=== PATIENT | female | born 1935 | race Caucasian/White ===

== ENCOUNTER 2019-03-06 20:28 | Inpatient (IN) | payer OTHER, MEDICAID ==
[~2019-03-06] VITALS: Ht 147.3 cm; Wt 59.4 kg
[2019-03-06 20:28] VITALS: BP_SYST 124
--- NOTE | 2019-03-06 20:29 | NUR ---
Placed in room 7 . Placed on hall monitor, blood pressure machine and pulse oximeter. To gown for exam. Side rails up.
--- NOTE | 2019-03-06 20:40 | NUR ---
Patient AOx4, brought to ER via ambulance BLS from [facility] for complaint of urinary frequency, needle-like pain with voiding since this AM. Patient states UTI's are a recurrent problem. Patient reports no fevers and no hematuria. Patient was last treated for a UTI 02/16/19. No other symptoms or complaints. Patient reports she recently voided and felt no symptoms.
--- NOTE | 2019-03-06 20:49 | NUR ---
ER Dr. Carbajal at bedside examining patient.
[2019-03-06] MEDS ORDERED: NACL 0.9% 1,000 ML IV ONE (20:55)
--- NOTE | 2019-03-06 21:10 | NUR ---
# 22 gauge angiocath placed to left hand. Use of asceptic technique. Opsite placed over site. Blood return noted. Blood for lab drawn from site. Flushed with 10 cc of normal saline. No evidence of infiltration noted. Patient tolerated well.
--- NOTE | 2019-03-06 21:42 | NUR ---
Urine specimen collected via straight cath. Patient tolerated well.
[2019-03-06 21:51] LABS: BILIRUBIN,URINE NEGATIVE (NEGATIVE); BLOOD, URINE 1+ (NEGATIVE); CLARITY/URINE CLEAR (CLEAR); COLOR,URINE YELLOW (YELLOW); GLUCOSE,URINE NEGATIVE (NEGATIVE); KETONES,URINE NEGATIVE (NEGATIVE); LEUKOCYTE ESTERASE ,URINE 1+ (NEGATIVE); NITRITE, URINE NEGATIVE (NEGATIVE); PH,URINE 6.5 (5.0-8.0); PROTEIN URINE NEGATIVE (NEGATIVE); UROBILINOGEN,URINE 0.2 (0.2-1.0)
[2019-03-06] MEDS ORDERED: ACET-2165 PO ×2 (21:55→21:56)
[2019-03-06] MEDS ORDERED: DEXT30DR6 EACH EYE (21:56)
[2019-03-06] MEDS ORDERED: LIP20 PO (21:57)
[2019-03-06] MEDS ORDERED: DIPH25CA83 PO (21:58)
[2019-03-06] MEDS ORDERED: CRAN450C PO (21:59)
[2019-03-06] MEDS ORDERED: DICL100G19 TP ×2 (22:01→22:31)
[2019-03-06 22:02] LABS: HEMOGLOBIN 13.2 g/dL (12.0-16.0); RED CELL DISTRIBUTION WIDTH 14.9 % (9.0-15.0); WHITE BLOOD COUNT (AUTO) 4.8 K/uL (4.8-10.8)
[2019-03-06] MEDS ORDERED: BISA10SU61 RC (22:02)
[2019-03-06] MEDS ORDERED: IPRA3AMP9 INH (22:04)
[2019-03-06] MEDS ORDERED: FLEETMO RC (22:04)
[2019-03-06 22:06] LABS: BASOPHILS % (AUTO) 0.8 % (0.0-2.0); EOSINOPHILS # (AUTO) 0.2 K/uL (0.0-0.4); EOSINOPHILS % (AUTO) 4.6 % (0.0-4.0); HEMATOCRIT 38.9 % (36-48); LYMPHOCYTES # (AUTO) 1.1 K/uL (1.0-5.5); LYMPHOCYTES % (AUTO) 21.9 % (20.5-51.5); MEAN CORPUSCULAR HEMOGLOBIN 33 pg (27-31); MEAN CORPUSCULAR HGB CONC 34 % (32-36); MEAN CORPUSCULAR VOLUME 99 fL (79.0-98.0); MONOCYTES # (AUTO) 0.4 K/uL (0.0-1.0); MONOCYTES % (AUTO) 9.2 % (1.7-9.3); NEUTROPHILS # (AUTO) 3.1 K/uL (1.8-7.7); NEUTROPHILS % (AUTO) 63.5 % (40.0-70.0); PLATELET COUNT (AUTO) 173 K/uL (130-430); RED BLOOD CELL COUNT(AUTO) 3.95 MIL/uL (4.2-6.2)
[2019-03-06] MEDS ORDERED: GLUC1VIA4 IM (22:07)
[2019-03-06] MEDS ORDERED: GLUCOSE PO (22:10)
[2019-03-06] MEDS ORDERED: MECL-110 PO (22:11)
[2019-03-06] MEDS ORDERED: MOM PO (22:12)
[2019-03-06 22:14] LABS: BACTERIA,URINE MODERATE /HPF (None Seen); WBC,URINE 20-50 /HPF (0-3)
[2019-03-06] MEDS ORDERED: HYDR-4272 PO (22:15)
[2019-03-06] MEDS ORDERED: OXCA300T38 PO (22:16)
[2019-03-06 22:18] LABS: ALANINE AMINOTRANSFERASE 30 U/L (12-78); ALBUMIN 3.3 g/dL (3.4-4.8); ANION GAP 8 (5-15); ASPARTATE AMINOTRANSFERASE 22 U/L (10-37); CALCIUM 8.8 mg/dL (8.4-11.0); CHLORIDE 105 mmol/L (98-107); CREATININE 0.96 mg/dL (0.55-1.30); GLUCOSE 103 mg/dL (70-99); POTASSIUM 4.8 mmol/L (3.5-5.1); SODIUM SERUM 140 mmol/L (136-145); TOTAL BILIRUBIN 0.2 mg/dL (0.0-1.0); UREA NITROGEN, BLOOD 24 mg/dL (8-21)
[2019-03-06] MEDS ORDERED: ALBU8.5H8 INH (22:27)
[2019-03-06] MEDS ORDERED: RANI-362 PO (22:29)
[2019-03-06] MEDS ORDERED: PROM6.256 PO (22:29)
[2019-03-06] MEDS ORDERED: SCOP1PAT21 TD (22:30)
[2019-03-06] MEDS ORDERED: ONDA4TAB5 PO (22:32)
[2019-03-06] MEDS ORDERED: INSU100V7 IJ (22:41)
--- NOTE | 2019-03-06 22:42 | NUR ---
Medication reconciliation completed with information provided by [facility]. Any prior medication reconciliation on file was reviewed and corrected.
[2019-03-06] MEDS ORDERED: LEVOFLOXACIN 500 MG/D5W 100 ML IV ONE (22:45)
--- NOTE | 2019-03-06 22:45 | NUR ---
End of life care decisions discussed with patient by Dr. Carbajla. Opportunity for questions and concerns addressed. Patient's code status is FULL CODE, paperwork completed and placed in chart.
--- NOTE | 2019-03-06 23:15 | NUR ---
Patient will be admitted to care of DR. SANTOS. Admitted to MED SURG unit. Summary report printed. Report will be given at bedside.
--- NOTE | 2019-03-06 23:16 | NUR ---
Awaiting room assignment per Med Surg unit charge nurse
[2019-03-07] VITALS (7 sets, daily range): BP systolic 114–121
--- NOTE | 2019-03-07 00:28 | NUR ---
Patient assigned bed 102A.
--- NOTE | 2019-03-07 00:34 | NUR ---
ADMISSION NOTE Received patient from ER via remigrant gap under the care of Dr. Perez. Patient admitted with diagnosis of Reccurent UTI. Patient is awake, alert, oriented X 3. Patient oriented to hospital room, call light, toileting, pain management . Patient informed that HER NURSE will be Yoel PALMER and that her room number is 102A. Call light within reach. Will continue to monitor patient condition.
[2019-03-07] MEDS: D5/0.45 NS 1,000 ML IV SCH ×2 (01:40→17:51)
--- NOTE | 2019-03-07 01:46 | NUR ---
Diaper use: Patient is requesting a diaper to be applied. She stated that she normally wears one at the senior care, and feels uncomfortable without a diaper on. Patient was educated regarding diaper use, including risk of skin breakdown. Patient verbalized understanding. Diaper applied per patient request. Will monitor for soilage.
[2019-03-07] MEDS ORDERED: FLU VACC TS2019(65UP)/MF59C/PF 45 MCG/0.5 ML SYRINGE I.M. PRN (03:45)
--- NOTE | 2019-03-07 04:09 | NUR ---
CONSULT: CONSULT CALLED FOR DR. DILEEP JARRETT I SPOKE WITH VALENCIA LÓPEZ REASON FOR CONSULT: RECURRENT UTI REQUESTING CONSULT: DR. SANTOS CHILD SUPPORT SPECIALIST PHONE NUMBER: [phone]
--- NOTE | 2019-03-07 04:31 | NUR ---
Rounds: Patient is resting comfortably in bed, no acute distress noted. IV fluids infusing as ordered to left hand IV site, no infiltration. Call light is with patient. Safety, fall, and seizure precautions in place. Will continue to monitor.
--- NOTE | 2019-03-07 06:31 | NUR ---
Closing note: Patient is resting in bed, no distress noted. Tolerating room air. IV to left hand patent and benign. Kept NPO since admission for abdominal ultrasound. Patient verbalized understanding of NPO status. All needs met. Safety and fall precautions observed. Hourly rounding performed throughout shift. Will endorse care to dayshift RN.
--- NOTE | 2019-03-07 07:36 | NUR ---
OPENING NOTES: RECEIVED PATIENT FROM INSTRUMENT CHECKER NURSE. PATIENT IS ASLEEP IN BED. NO SIGNS OF DISTRESS OR SHORTNESS OF BREATH NOTED. PATIENT IS TOLERATING OXYGEN AT ROOM AIR. IV SITE IS PATENT WITH NO SIGNS OF INFILTRATION. PATIENT IN STABLE CONDITION. SAFETY, FALL, ASPIRATION AND SEIZURE PRECAUTIONS ARE IN PLACE. BED LOCKED IN LOWEST POSITION WITH CALL LIGHT IN REACH. WILL CONTINUE TO MONITOR PATIENT FOR ANY CHANGES. Addendum: 03/07/19 at 1841 by Sandi Mcclain RN REMOVED DIAPER AND EDUCATED PT ON RISK FOR SKIN BREAKDOWN WITH USE OF DIAPER, PERINEAL CARE PROVIDED, EDUCATED PT TO CALL WHEN SHE IS SOILED AND WE WILL COME AND CHANGE HER OR CALL TO USE BEDPAN. PT VERBALIZED UNDERSTANDING.
[2019-03-07 07:41] LABS: ALANINE AMINOTRANSFERASE 39 U/L (12-78); ANION GAP 2 (5-15); ASPARTATE AMINOTRANSFERASE 35 U/L (10-37); CHLORIDE 106 mmol/L (98-107); CHOLESTEROL 138 mg/dL (<200); CREATININE 0.74 mg/dL (0.55-1.30); GLUCOSE 89 mg/dL (70-99); HDL CHOLESTEROL 55 mg/dL (>55); LDL CHOLESTEROL 69 mg/dL (<100); POTASSIUM 4.5 mmol/L (3.5-5.1); SODIUM SERUM 137 mmol/L (136-145); TOTAL BILIRUBIN 0.2 mg/dL (0.0-1.0); TRIGLYCERIDES 53 mg/dL (30-150); UREA NITROGEN, BLOOD 20 mg/dL (8-21)
[2019-03-07 07:46] LABS: BASOPHILS % (AUTO) 0.9 % (0.0-2.0); EOSINOPHILS # (AUTO) 0.2 K/uL (0.0-0.4); HEMATOCRIT 39.7 % (36-48); HEMOGLOBIN 13.2 g/dL (12.0-16.0); MEAN CORPUSCULAR HEMOGLOBIN 33 pg (27-31); MEAN CORPUSCULAR HGB CONC 33 % (32-36); MEAN CORPUSCULAR VOLUME 100 fL (79.0-98.0); MONOCYTES # (AUTO) 0.3 K/uL (0.0-1.0); MONOCYTES % (AUTO) 10.2 % (1.7-9.3); NEUTROPHILS # (AUTO) 1.8 K/uL (1.8-7.7); NEUTROPHILS % (AUTO) 53.9 % (40.0-70.0); PLATELET COUNT (AUTO) 136 K/uL (130-430); RED BLOOD CELL COUNT(AUTO) 3.98 MIL/uL (4.2-6.2); RED CELL DISTRIBUTION WIDTH 14.6 % (9.0-15.0)
[2019-03-07 08:11] LABS: CALCIUM 8.3 mg/dL (8.4-11.0); THYROID STIMULATING HORMONE 5.22 uIu/mL (0.36-3.74)
[2019-03-07 08:17] LABS: WHITE BLOOD COUNT (AUTO) 3.3 K/uL (4.8-10.8)
--- NOTE | 2019-03-07 10:05 | NUR ---
RN ROUNDS: PATIENT IS AWAKE AND ALERT x4. PATIENT DENIES ANY PAIN AT THE MOMENT. NO SIGNS OF DISTRESS OR SHORTNESS OF BREATH NOTED. PATIENT IN STABLE CONDITION. WILL CONTINUE TO MONITOR PATIENT FOR ANY CHANGES.
--- NOTE | 2019-03-07 10:12 | NUR ---
Nutrition Update Hiro Scale 15 noted. Pt admitted for recurrent UTI. Diet: 2 gm Na BMI: 27.4 kg/m2 RD to follow per nutrition care standards.
--- NOTE | 2019-03-07 12:20 | NUR ---
RN ROUNDS: PATIENT IS AWAKE AND ALERT x4. VOLUNTEER AT BEDSIDE. NO SIGNS OF DISTRESS OR SHORTNESS OF BREATH NOTED. PATIENT DENIES ANY PAIN AT THE MOMENT. PATIENT IN STABLE CONDITION. WILL CONTINUE TO MONITOR PATIENT FOR ANY CHANGES.
[2019-03-07] MEDS ORDERED: GLUCOSE PO PRN (12:30)
[2019-03-07] MEDS ORDERED: ALBUTEROL MDI INHALATION 8 GM INH INH PRN (12:30)
[2019-03-07] MEDS ORDERED: ONDANSETRON 4 MG ODT TAB PO PRN (12:30)
[2019-03-07] MEDS ORDERED: DICLOFENAC SODIUM 1% TP PRN (12:30)
[2019-03-07] MEDS ORDERED: MINERAL OIL 133 ML ENEMA RC PRN (12:30)
[2019-03-07] MEDS ORDERED: IPRATROPIUM/ALBUTEROL SULFATE 3 ML AMPUL.NEB (DUONEB) INH PRN (12:30)
[2019-03-07] MEDS ORDERED: MILK OF MAGNESIA 30 ML UDC PO PRN (12:30)
[2019-03-07] MEDS ORDERED: DIPHENHYDRAMINE HCL 25 MG CAPSULE PO PRN (12:30)
[2019-03-07] MEDS ORDERED: INSULIN REGULAR HUMAN 100 UNIT IJ PRN (12:30)
[2019-03-07] MEDS ORDERED: ACETAMINOPHEN 325 MG TABLET PO PRN ×2 (12:30)
[2019-03-07] MEDS ORDERED: GLUCOSE 15 GM GEL (in 37.5 GM TUBE) PO PRN (13:15)
[2019-03-07] MEDS ORDERED: D5W 1,000 ML IV PRN (13:15)
[2019-03-07] MEDS ORDERED: PROMETHAZINE HCL 6.25 MG/5 ML UDC PO PRN (13:15)
[2019-03-07] MEDS ORDERED: HYDROcodone/ACETAMIN 5-325 MG TAB (NORCO/ VICODIN) PO PRN (13:15)
[2019-03-07] MEDS ORDERED: DEXTROSE 50%-WATER 50 ML DISP.SYRIN IVP PRN (13:15)
[2019-03-07] MEDS: MECLIZINE HCL 25 MG TABLET (ANITVERT) PO PRN (13:24)
[2019-03-07] MEDS ORDERED: SODIUM PHOSPHATE,MONO-DIBASIC 133 ML ENEMA RC PRN (13:53)
[2019-03-07] MEDS ORDERED: NA P133E41 RC (13:55)
[2019-03-07] MEDS ORDERED: GLUCAGON,HUMAN RECOMBINANT 1 MG VIAL IM PRN (14:00)
--- NOTE | 2019-03-07 14:10 | NUR ---
RN ROUNDS: PATIENT IS AWAKE AND ALERT x 4. PATIENT DENIES ANY PAIN AT THE MOMENT. NO SIGNS OF DISTRESS OR SHORTNESS OF BREATH NOTED. PATIENT IN STABLE CONDITION. WILL CONTINUE TO MONITOR PATIENT FOR ANY CHANGES.
[2019-03-07] MEDS: PEG 400/HYPROMELLOSE/GLYCERIN 15 ML DROPS EACH EYE SCH ×3 (14:27→20:18)
[2019-03-07] MEDS ORDERED: DICLOFENAC SODIUM 1% TP SCH (15:00)
--- NOTE | 2019-03-07 15:13 | NUR ---
Firmware Test Engineer: Conduct a DCPA INSURANCE PROCESSING CLERK met with pt. who was pleasant, able to particpate in this interview, awake and alert. Pt stated she was doing well. She stated she gets vertigo when she stands or walks for a long period of time. She uses a wheelchair to get around. Pt. denied ever feeling depressed or anxious. INSURANCE PROCESSING CLERK will remain available as needed.
[2019-03-07] MEDS ORDERED: FAMOTIDINE 20 MG TABLET PO ONE (16:45)
[2019-03-07] MEDS: INSULIN REGULAR, HUMAN 100 UNITS/ML, 10 ML VIAL (humuLIN R) SUBCUT PRN ×2 (17:46→20:29)
--- NOTE | 2019-03-07 18:41 | NUR ---
CLOSING NOTE PT IN BED, NO S/S OF DISTRESS OR SOB NOTED, PT HAS NO C/O PAIN AT THIS TIME, PT IN STABLE CONDITION, PT EATING DINNER, IV CATHETER PATENT, NO SIGNS IF INFECTION OR INFILTRATION NOTED, RUNNING IV FLUIDS ORDERED. FALL, SAFETY AND SEIZURE PRECAUTIONS IN PLACE. BED AT LOWEST POSITION, CALL LIGHT WITHIN REACH, WILL ENDORSE CARE OF PT TO INCOMING NURSE.
--- NOTE | 2019-03-07 19:15 | NUR ---
OPENING NOTES Pt and endorsement received from day shift nurse. Pt is AAOx4, lying in bed. Pt on IVF with D5,0.45NS at 50ml/hr and infusing well on left hand G22. No complains of pain or discomfort at this time. No signs of acute distress or SOB noted. Encouraged to use call light when needed. Safety precautions in place with 3 side rails up, wheels locked, bed alarm on and in lowest level. Call light with pt. Will continue to monitor.
[2019-03-07] MEDS: ATORVASTATIN 20 MG TABLET PO SCH (20:19)
[2019-03-07] MEDS: LEVOFLOXACIN 250 MG/D5W 50 ML IV SCH (20:19)
[2019-03-07] MEDS: OXcarbazepine 150 MG TABLET(TRILEPTAL) PO SCH (20:19)
--- NOTE | 2019-03-07 20:20 | NUR ---
SEEN BY DR. SANTOS.
--- NOTE | 2019-03-07 20:29 | NUR ---
MED PASS All due meds given and pt tolerated well. No complains of pain and no signs of acute distress noted. IVF infusing well. Safety precautions in place and call light with pt. Will continue to monitor.
[2019-03-07] MEDS ORDERED: LEVOFLOXACIN 500 MG/D5W 100 ML IV SCH (21:00)
--- NOTE | 2019-03-07 23:30 | NUR ---
ROUNDS Pt is resting in bed with both eyes closed, with visible chest rise and fall with non-labored breathing noted. No signs of acute distress noted. IVF infusing well. No needs at this time. Safety precautions in place and call light with pt. Will continue to monitor.
[2019-03-08 01:13] VITALS: BP_SYST 101
--- NOTE | 2019-03-08 03:01 | NUR ---
ROUNDS Pt is resting in bed with both eyes closed, with visible chest rise and fall with non-labored breathing noted. No complains of pain and no signs of acute distress noted. No needs at this time. Safety precautions in place and call light with pt. Will continue to monitor.
[2019-03-08] MEDS: INSULIN REGULAR, HUMAN 100 UNITS/ML, 10 ML VIAL (humuLIN R) SUBCUT PRN ×2 (06:27→21:19)
--- NOTE | 2019-03-08 06:43 | NUR ---
CLOSING NOTES Pt is resting in bed with both eyes closed, with visible chest rise and fall with non-labored breathing noted. IVF patent and infusing well. No complains of pain or discomfort at this time. No signs of acute distress or SOB noted. Safety precautions maintained with 3 side rails up, wheels locked, bed alarm on and in lowest level. Call light with pt. Will endorse to day shift nurse.
[2019-03-08 07:01] LABS: BASOPHILS % (AUTO) 0.4 % (0.0-2.0); EOSINOPHILS # (AUTO) 0.2 K/uL (0.0-0.4); EOSINOPHILS % (AUTO) 3.5 % (0.0-4.0); HEMATOCRIT 39.4 % (36-48); HEMOGLOBIN 13.5 g/dL (12.0-16.0); LYMPHOCYTES # (AUTO) 0.8 K/uL (1.0-5.5); LYMPHOCYTES % (AUTO) 12.5 % (20.5-51.5); MEAN CORPUSCULAR HEMOGLOBIN 34 pg (27-31); MEAN CORPUSCULAR HGB CONC 34 % (32-36); MEAN CORPUSCULAR VOLUME 100 fL (79.0-98.0); MONOCYTES # (AUTO) 0.6 K/uL (0.0-1.0); MONOCYTES % (AUTO) 9.3 % (1.7-9.3); NEUTROPHILS # (AUTO) 4.5 K/uL (1.8-7.7); NEUTROPHILS % (AUTO) 74.3 % (40.0-70.0); PLATELET COUNT (AUTO) 209 K/uL (130-430); RED BLOOD CELL COUNT(AUTO) 3.93 MIL/uL (4.2-6.2); RED CELL DISTRIBUTION WIDTH 14.7 % (9.0-15.0)
[2019-03-08 07:14] LABS: ALANINE AMINOTRANSFERASE 32 U/L (12-78); ASPARTATE AMINOTRANSFERASE 27 U/L (10-37); CALCIUM 8.6 mg/dL (8.4-11.0); CHLORIDE 106 mmol/L (98-107); CREATININE 0.76 mg/dL (0.55-1.30); GLUCOSE 77 mg/dL (70-99); POTASSIUM 4.5 mmol/L (3.5-5.1); SODIUM SERUM 141 mmol/L (136-145); TOTAL BILIRUBIN 0.2 mg/dL (0.0-1.0); UREA NITROGEN, BLOOD 14 mg/dL (8-21)
[2019-03-08 07:24] LABS: WHITE BLOOD COUNT (AUTO) 6.1 K/uL (4.8-10.8)
[2019-03-08 07:25] LABS: ANION GAP 7 (5-15)
--- NOTE | 2019-03-08 07:50 | NUR ---
OPENING NOTE RECEIVED PATIENT AWAKE IN BED. A/OX3. ROOM AIR. NO ACUTE DISTRESS. NO SOB. RESP EVEN AND UNLABORED. SKIN WARM AND DRY TO TOUCH. IV INTACT AND PATENT. BED IN LOW AND LOCKED POSITION. PADDED SIDERAIL UPX3. BED ALARM ON. ON SEIZURE PRECAUTION. ALL NEEDS MET. CALL LIGHT IN REACH. CONT TO MONITOR.
[2019-03-08 08:00] VITALS: BP_SYST 144
[2019-03-08] MEDS ORDERED: SCOPOLAMINE HYDROBROMIDE 1.5 MG PATCH .72 H (TRANSDERM-SCOP) TD SCH (09:00)
[2019-03-08] MEDS ORDERED: BISACODYL 10 MG/SUPPOSITORY RC PRN (09:00)
[2019-03-08] MEDS: MECLIZINE HCL 25 MG TABLET (ANITVERT) PO PRN ×2 (09:08→23:08)
[2019-03-08] MEDS: FAMOTIDINE 20 MG TABLET PO SCH (09:08)
[2019-03-08] MEDS: OXcarbazepine 150 MG TABLET(TRILEPTAL) PO SCH ×2 (09:08→20:42)
[2019-03-08] MEDS: PEG 400/HYPROMELLOSE/GLYCERIN 15 ML DROPS EACH EYE SCH ×4 (09:08→20:44)
--- NOTE | 2019-03-08 09:46 | NUR ---
SEEN AND EXAMINED BY AT BEDSIDE
[2019-03-08] MEDS ORDERED: DICLOFENAC SODIUM 1% TP PRN (10:00)
--- NOTE | 2019-03-08 10:16 | NUR ---
Ortho consult called: for Dr. Avila, regarding right knee pain and swelling, ordered by Dr. Olson, spoke with Kelsie.
[2019-03-08 11:29] VITALS: BP_SYST 142
--- NOTE | 2019-03-08 11:30 | NUR ---
BS PATIENT BLOOD GLUCOSE IS 103 mg/dL WITH NO INSULIN COVERAGE NEEDED. TEACHING DONE ON DM. ALL NEEDS MET. CONT TO MONITOR. CALL LIGHT IN REACH
--- NOTE | 2019-03-08 12:00 | NUR ---
WOUND CONSULT WOUND CONSULT DONE BY MAKAYLA PALMER. PATIENT ALOK WELL. CONT TO MONITOR
[2019-03-08] MEDS ORDERED: MUPIROCIN 2% TOPICAL OINTMENT 22 GM NS ONE (13:00)
--- NOTE | 2019-03-08 13:20 | NUR ---
/MRSA MADE AWARE PATIENT IS POSITIVE FOR MRSA NARES. ORDERS RECEIVED. PATIENT AWARE. ALL NEEDS MET. CONT TO MONITOR
--- NOTE | 2019-03-08 16:18 | NUR ---
NOTE PATIENT STABLE IN BED PLAYING CROSSWORDS. DENIES PAIN. NO ACUTE DISTRESS. NO SOB. CALL LIGHT IN REACH. CONT TO MONITOR.
--- NOTE | 2019-03-08 17:50 | NUR ---
SEEN AND EXAMINED BY AT BEDSIDE ORDERED CONSULT WITH UROLOGIST FOR RECURRENT UTI AND CBC, CMP FOR TOMORROW
[2019-03-08] MEDS: NYSTATIN 15 GM TOPICAL POWDER TP SCH ×2 (18:03→20:54)
[2019-03-08] MEDS: D5/0.45 NS 1,000 ML IV SCH (18:04)
[2019-03-08 18:11] VITALS: BP_SYST 123
--- NOTE | 2019-03-08 18:58 | NUR ---
CLOSING NOTE PATIENT AWAKE IN BED WATCHING TV. NO C/O PAIN. NO ACUTE DISTRESS. NO SOB. RESPIRATION EVEN AND UNLABORED. SKIN WARM AND DRY TO TOUCH. IV INTACT AND PATENT. KEPT CLEAN AND DRY. BED IN LOW AND LOCKED POSITION. PADDED SIDERAIL UPX3. BED ALARM ON. CALL LIGHT IN REACH. CONT TO MONITOR
[2019-03-08 20:00] VITALS: BP_SYST 115
[2019-03-08] MEDS: ATORVASTATIN 20 MG TABLET PO SCH (20:43)
[2019-03-08] MEDS: MUPIROCIN 2% TOPICAL OINTMENT 22 GM NS SCH (20:43)
[2019-03-08] MEDS: LEVOFLOXACIN 250 MG/D5W 50 ML IV SCH (20:44)
[2019-03-08] MEDS: DICLOFENAC SODIUM 1% TP SCH (21:00)
--- NOTE | 2019-03-08 22:31 | NUR ---
patient claims the iv site is painful and refused it to be flushed. will inform Dr Perez about it, desires the iv cannula to be discontinued and refused reinsertion
--- NOTE | 2019-03-08 22:47 | NUR ---
iv cannula discontinued and noted slight redness but no signs of infection. as per Dr Perez orders,
[2019-03-09] VITALS (7 sets, daily range): BP systolic 105–134
[2019-03-09 06:53] LABS: BASOPHILS # (AUTO) 0.1 K/uL (0.0-0.2); BASOPHILS % (AUTO) 1.2 % (0.0-2.0); EOSINOPHILS # (AUTO) 0.3 K/uL (0.0-0.4); EOSINOPHILS % (AUTO) 5.1 % (0.0-4.0); HEMATOCRIT 40.4 % (36-48); HEMOGLOBIN 13.5 g/dL (12.0-16.0); LYMPHOCYTES % (AUTO) 20.3 % (20.5-51.5); MEAN CORPUSCULAR HEMOGLOBIN 33 pg (27-31); MEAN CORPUSCULAR HGB CONC 33 % (32-36); MEAN CORPUSCULAR VOLUME 100 fL (79.0-98.0); MONOCYTES # (AUTO) 0.4 K/uL (0.0-1.0); MONOCYTES % (AUTO) 8.7 % (1.7-9.3); NEUTROPHILS # (AUTO) 3.2 K/uL (1.8-7.7); NEUTROPHILS % (AUTO) 64.7 % (40.0-70.0); PLATELET COUNT (AUTO) 181 K/uL (130-430); RED BLOOD CELL COUNT(AUTO) 4.05 MIL/uL (4.2-6.2); RED CELL DISTRIBUTION WIDTH 14.5 % (9.0-15.0); WHITE BLOOD COUNT (AUTO) 4.9 K/uL (4.8-10.8)
--- NOTE | 2019-03-09 07:03 | NUR ---
Dr Reyes called and informed that the patient insurance do not include the urology consult and cannot be seen by him. Provided Dr Victor number to him to calll about the matter. can go as outpatient as planned,
[2019-03-09 07:04] LABS: ANION GAP 5 (5-15); CHLORIDE 107 mmol/L (98-107); POTASSIUM 3.9 mmol/L (3.5-5.1); SODIUM SERUM 141 mmol/L (136-145)
[2019-03-09 07:05] LABS: ALANINE AMINOTRANSFERASE 29 U/L (12-78); ALBUMIN 3.1 g/dL (3.4-4.8); ASPARTATE AMINOTRANSFERASE 25 U/L (10-37); CREATININE 0.78 mg/dL (0.55-1.30); GLUCOSE 94 mg/dL (70-99); TOTAL BILIRUBIN 0.3 mg/dL (0.0-1.0); UREA NITROGEN, BLOOD 15 mg/dL (8-21)
[2019-03-09 07:22] LABS: CALCIUM 8.6 mg/dL (8.4-11.0)
--- NOTE | 2019-03-09 07:36 | NUR ---
patient cleaned and kept dry and has no iv c\acces and Dr Perez is aware. patient refused reinsertion.
--- NOTE | 2019-03-09 07:45 | NUR ---
Opening Notes Patient received lying comfortably in her bed with respiration even and unlabored. Alert, awake and verbally responsive, with episodes of forgetfulness. Able to verbalize needs and concerns. Discussed with patient the plan of care and using of call light, patient verbalized understanding. Contact isolation observed. Call light within the reach. Fall precaution observed. Will continue to monitor.
[2019-03-09] MEDS: DICLOFENAC SODIUM 1% TP SCH ×2 (09:00→15:00)
--- NOTE | 2019-03-09 09:00 | NUR ---
RN ROUNDS Patient remain to be alert, awake and verbally responsive. Denies any pain or discomfort at time. Attended to needs and anticipated. Call light within the reach.
[2019-03-09] MEDS: PEG 400/HYPROMELLOSE/GLYCERIN 15 ML DROPS EACH EYE SCH ×4 (10:01→20:11)
[2019-03-09] MEDS: NYSTATIN 15 GM TOPICAL POWDER TP SCH ×2 (10:02→20:12)
[2019-03-09] MEDS: MUPIROCIN 2% TOPICAL OINTMENT 22 GM NS SCH ×2 (10:02→20:11)
[2019-03-09] MEDS: FAMOTIDINE 20 MG TABLET PO SCH (10:02)
[2019-03-09] MEDS: OXcarbazepine 150 MG TABLET(TRILEPTAL) PO SCH ×2 (10:02→20:11)
--- NOTE | 2019-03-09 10:04 | NUR ---
ID MD DR ARACELY FALK WAS CALLED RE: PT REFUSED IV, CHANGE ROUTE OF ANTIBIOTIC TO PO. SPOKE TO ENOC
--- NOTE | 2019-03-09 11:00 | NUR ---
RN ROUNDS Resting well, denies any pain or discomfort at this time. Patient still refusing Iv reinsertion, explained risks and benefits. Respiration remain to be even and unlabored. Call light within the reach.
[2019-03-09] MEDS: MECLIZINE HCL 25 MG TABLET (ANITVERT) PO PRN (12:26)
--- NOTE | 2019-03-09 13:10 | NUR ---
RN ROUNDS Patient doing her crossword puzzle, resting well. Denies any pain or discomfort at this time. Alert, awake and verbally responsive. Seizure precautions observed. Call light within the reach.
[2019-03-09] MEDS: D5/0.45 NS 1,000 ML IV SCH (14:00)
--- NOTE | 2019-03-09 15:05 | NUR ---
RN ROUNDS Patient lying comfortably in her bed at this time, eyes closed. No moaning or grimacing noted. Call light within the reach.
--- NOTE | 2019-03-09 16:00 | NUR ---
IV line re-inserted Patient's IV line reinserted to left forearm, 22G, good venous return, well tolerated. Continue IVF fluid, infusing well.
--- NOTE | 2019-03-09 17:30 | NUR ---
Blood sugar check Patient's blood sugar is 87, no signs and symptoms of hypoglycemia or hypoglycemia noted.
--- NOTE | 2019-03-09 18:44 | NUR ---
Spoke with Dr. Perez Called and spoke with Dr. Perez notified no one can bring patient's diclofenac cream and cranberry capsule with new order to d/c both, noted and carried out.
--- NOTE | 2019-03-09 18:45 | NUR ---
CLOSING NOTES Patient remain to be alert, awake and verbally responsive. Denies any pain or discomfort at this time. Respiration even and unlabored. IVF infusing well.Contact isolation observed. Fall precaution observed. Bed alarm on, bed at lowest position. Will endorse to the next shift.
--- NOTE | 2019-03-09 19:30 | NUR ---
OPENING NOTES Pt and endorsement received from day shift nurse. Pt is AAOx4, lying in bed. Pt on IVF with D5,0.45NS at 50ml/hr and infusing well on left forearm G22. No complains of pain or discomfort at this time. No signs of acute distress or SOB noted. Encouraged to use call light when needed. Safety precautions in place with 3 side rails up, wheels locked, bed alarm on and in lowest level. Call light with pt. Will continue to monitor.
[2019-03-09] MEDS: LEVOFLOXACIN 250 MG/D5W 50 ML IV SCH (20:11)
[2019-03-09] MEDS: ATORVASTATIN 20 MG TABLET PO SCH (20:11)
[2019-03-09] MEDS: INSULIN REGULAR, HUMAN 100 UNITS/ML, 10 ML VIAL (humuLIN R) SUBCUT PRN (20:25)
--- NOTE | 2019-03-09 20:25 | NUR ---
MED PASS All oral due meds given and pt tolerated well. Aspiration precaution maintained with head elevated at 50 degrees. No complains of pain and no signs of acute distress noted. IVF infusing well. Safety and seizure precautions in place and call light with pt. Will continue to monitor.
--- NOTE | 2019-03-09 23:30 | NUR ---
ROUNDS Pt is resting in bed with both eyes closed, with visible chest rise and fall with non-labored breathing noted. No complains of pain and no signs of acute distress noted. IVF infusing well. Safety precautions in place and call light with pt. Will continue to monitor.
--- NOTE | 2019-03-10 02:02 | NUR ---
ROUNDS Pt is resting in bed with both eyes closed, with visible chest rise and fall with non-labored breathing noted. No signs of acute distress noted. No needs at this time. IVF infusing well. Safety precautions in place and call light with pt. Will continue to monitor.
--- NOTE | 2019-03-10 04:15 | NUR ---
ROUNDS Pt was wet, incontinence care rendered by ARMANDO Donohue. No complains of pain and no signs of acute distress noted. IVF infusing well. Safety precautions in place and call light with pt. Will continue to monitor.
[2019-03-10] MEDS: INSULIN REGULAR, HUMAN 100 UNITS/ML, 10 ML VIAL (humuLIN R) SUBCUT PRN (06:24)
--- NOTE | 2019-03-10 06:38 | NUR ---
CLOSING NOTES Pt is resting in bed with both eyes closed, with visible chest rise and fall with non-labored breathing noted. IVF patent and infusing well. No complains of pain or discomfort at this time. No signs of acute distress or SOB noted. All needs attended throughout the shift. Seizure pads in place and safety precautions maintained with 3 side rails up, wheels locked, bed alarm on and in lowest level. Call light with pt. Will endorse to day shift nurse.
--- NOTE | 2019-03-10 07:30 | NUR ---
Initial notes: Patient awake, alert and oriented. Stable. I.V. patent. Discussed plan of care. Call light within reach. Safety and seizure precaution in placed. Report received from SPENCER Marin. at bedside.
[2019-03-10 08:01] VITALS: BP_SYST 148
[2019-03-10] MEDS: FAMOTIDINE 20 MG TABLET PO SCH (08:31)
[2019-03-10] MEDS: MUPIROCIN 2% TOPICAL OINTMENT 22 GM NS SCH (08:31)
[2019-03-10] MEDS: OXcarbazepine 150 MG TABLET(TRILEPTAL) PO SCH (08:31)
[2019-03-10] MEDS: PEG 400/HYPROMELLOSE/GLYCERIN 15 ML DROPS EACH EYE SCH ×2 (08:33→13:50)
[2019-03-10] MEDS: NYSTATIN 15 GM TOPICAL POWDER TP SCH (08:33)
--- NOTE | 2019-03-10 09:11 | NUR ---
rounds: Patient having breakfast. no distress noted.
[2019-03-10 12:08] VITALS: BP_SYST 120
--- NOTE | 2019-03-10 13:20 | NUR ---
rounds: changed underpad and repositioned the patient for comfort.
[2019-03-10] MEDS: MECLIZINE HCL 25 MG TABLET (ANITVERT) PO PRN (13:59)
[2019-03-10 15:01] VITALS: BP_SYST 120
--- NOTE | 2019-03-10 15:24 | NUR ---
rounds: patient resting on bed. no distress noted.
--- NOTE | 2019-03-10 15:47 | NUR ---
Discharge Planning: [facility] ([phone]) Rm 4A, transportation with [facility] ([phone]) between 4:30/5:30 [facility] Auth# [id number] Patient packet taken to nurse station.
--- NOTE | 2019-03-10 16:16 | NUR ---
PT TRANSFERRED Report given to Brandon at [facility]. Transfer packet with Transfer Orders and Medication Reconciliation form given to EMT with report. Exitcare provided. [facility] ID band removed, replaced with ID band with pt's name and . IV catheter removed, intact and dressing applied, no active bleeding. All belongings sent with patient. Patient left floor via gurney escorted by EMT in no distress.
== END 2019-03-10 16:05 | DRG 690 ==
LOC: SED 20:28 → SMU 23:04
PROVIDERS: ADMIT Internal Medicine; ATTEND Internal Medicine
DX: N39.0 Urinary tract infection, site not specified (principal); F03.90 Unspecified dementia, unspecified severity, without behavioral disturbance, psychotic disturbance, mood disturbance, and anxiety; F32.9 Major depressive disorder, single episode, unspecified; G40.909 Epilepsy, unspecified, not intractable, without status epilepticus; I10 Essential (primary) hypertension; I89.0 Lymphedema, not elsewhere classified; J44.9 Chronic obstructive pulmonary disease, unspecified; M17.11 Unilateral primary osteoarthritis, right knee; F41.9 Anxiety disorder, unspecified; Z22.322 Carrier or suspected carrier of Methicillin resistant Staphylococcus aureus; Z86.19 Personal history of other infectious and parasitic diseases; Z88.0 Allergy status to penicillin; Z79.899 Other long term (current) drug therapy; Z79.4 Long term (current) use of insulin
CPT/HCPCS: 36415; 76700-TC; 80053; 80061; 81000-TC; 82962; 83605; 84443-TC; 85025; 87040-TC; 87081; 87086; 94640; 96361; 96365; 97112-GP; 99285; J1815; J1956; J7620; J8597

== ENCOUNTER 2019-04-20 12:15 | Inpatient (IN) | payer OTHER, MEDICAID ==
[~2019-04-20] VITALS: Ht 147.3 cm; Wt 68.0 kg
[~2019-04-20 12:15] MED LIST: ACET-2165 PO; ALBU8.5H8 INH; BISA10SU61 RC; CRAN450C PO; DEXT30DR6 EACH EYE; DICL100G19 TP; DIPH25CA83 PO; GLUC1VIA4 IM; GLUCOSE PO; HYDR-4272 PO; INSU100V7 IJ; IPRA3AMP9 INH; LIP20 PO; MECL-110 PO; MOM PO; NA P133E41 RC; ONDA4TAB5 PO; OXCA300T38 PO; PROM6.256 PO; RANI-362 PO; SCOP1PAT21 TD
[2019-04-20 12:27] VITALS: BP_SYST 127
[2019-04-20 13:15] LABS: BASOPHILS % (AUTO) 0.8 % (0.0-2.0); EOSINOPHILS # (AUTO) 0.2 K/uL (0.0-0.4); EOSINOPHILS % (AUTO) 4.7 % (0.0-4.0); HEMATOCRIT 40.2 % (36-48); HEMOGLOBIN 13.3 g/dL (12.0-16.0); LYMPHOCYTES # (AUTO) 0.9 K/uL (1.0-5.5); LYMPHOCYTES % (AUTO) 23.2 % (20.5-51.5); MEAN CORPUSCULAR HEMOGLOBIN 33 pg (27-31); MEAN CORPUSCULAR HGB CONC 33 % (32-36); MEAN CORPUSCULAR VOLUME 99 fL (79.0-98.0); MONOCYTES # (AUTO) 0.3 K/uL (0.0-1.0); MONOCYTES % (AUTO) 8.6 % (1.7-9.3); NEUTROPHILS # (AUTO) 2.3 K/uL (1.8-7.7); NEUTROPHILS % (AUTO) 62.7 % (40.0-70.0); PLATELET COUNT (AUTO) 142 K/uL (130-430); RED BLOOD CELL COUNT(AUTO) 4.06 MIL/uL (4.2-6.2); RED CELL DISTRIBUTION WIDTH 13.8 % (9.0-15.0); WHITE BLOOD COUNT (AUTO) 3.7 K/uL (4.8-10.8)
[2019-04-20 13:21] LABS: BILIRUBIN,URINE NEGATIVE (NEGATIVE); BLOOD, URINE 1+ (NEGATIVE); CLARITY/URINE SL CLOUDY (CLEAR); COLOR,URINE YELLOW (YELLOW); GLUCOSE,URINE NEGATIVE (NEGATIVE); KETONES,URINE NEGATIVE (NEGATIVE); LEUKOCYTE ESTERASE ,URINE 2+ (NEGATIVE); NITRITE, URINE NEGATIVE (NEGATIVE); PROTEIN URINE TRACE (NEGATIVE); UROBILINOGEN,URINE 0.2 (0.2-1.0)
[2019-04-20 13:23] LABS: BACTERIA,URINE MODERATE /HPF (None Seen); WBC,URINE 20-50 /HPF (0-3)
[2019-04-20 13:25] LABS: CALCIUM 8.7 mg/dL (8.4-11.0); CHLORIDE 103 mmol/L (98-107); CREATININE 0.85 mg/dL (0.55-1.30); GLUCOSE 102 mg/dL (70-99); POTASSIUM 4.5 mmol/L (3.5-5.1); SODIUM SERUM 134 mmol/L (136-145); UREA NITROGEN, BLOOD 19 mg/dL (8-21)
[2019-04-20 13:26] LABS: PROTHROMBIN TIME 9.7 SECS (9.5-12.5)
[2019-04-20 13:27] LABS: ANION GAP < 3 (5-15)
[2019-04-20 13:31] LABS: ALANINE AMINOTRANSFERASE 24 U/L (12-78); ALBUMIN 3.4 g/dL (3.4-4.8); ASPARTATE AMINOTRANSFERASE 24 U/L (10-37); TOTAL BILIRUBIN 0.2 mg/dL (0.0-1.0)
[2019-04-20] MEDS ORDERED: DEXT30DR6 EACH EYE (14:05)
[2019-04-20] MEDS ORDERED: FAMO20TA8 PO (14:05)
[2019-04-20] MEDS ORDERED: LEVOFLOXACIN 500 MG/D5W 100 ML IV ONE (14:45)
[2019-04-20 15:46] VITALS: BP_SYST 115
[2019-04-20 16:04] VITALS: BP_SYST 115
[2019-04-20] MEDS: 0.45% NACL 1,000 ML IV SCH (16:51)
[2019-04-20] MEDS: PIPERACILLIN/TAZO 3.375/DEX-IS 50 ML IV SCH (17:58)
[2019-04-20] MEDS ORDERED: PIPERACILLIN/TAZO 3.375/DEX-IS 50 ML IV SCH (18:00)
[2019-04-21] MEDS: 0.45% NACL 1,000 ML IV SCH ×3 (00:37→22:11)
[2019-04-21] MEDS: PIPERACILLIN/TAZO 3.375/DEX-IS 50 ML IV SCH ×4 (01:11→17:21)
[2019-04-21 01:25] VITALS: BP_SYST 100
[2019-04-21 08:00] VITALS: BP_SYST 123
[2019-04-21 12:40] VITALS: BP_SYST 125
[2019-04-21] MEDS ORDERED: OXcarbazepine 150 MG TABLET(TRILEPTAL) PO ONE (12:45)
[2019-04-21] MEDS: MECLIZINE HCL 25 MG TABLET (ANITVERT) PO PRN (13:07)
[2019-04-21 16:40] VITALS: BP_SYST 109
[2019-04-21] MEDS ORDERED: PROMETHAZINE HCL 6.25 MG/5 ML UDC PO PRN (20:45)
[2019-04-21] MEDS ORDERED: IPRATROPIUM/ALBUTEROL SULFATE 3 ML AMPUL.NEB (DUONEB) INH PRN (20:45)
[2019-04-21] MEDS ORDERED: ACETAMINOPHEN 325 MG TABLET PO PRN ×2 (20:45)
[2019-04-21] MEDS ORDERED: MILK OF MAGNESIA 30 ML UDC PO PRN (20:45)
[2019-04-21] MEDS ORDERED: DIPHENHYDRAMINE HCL 25 MG CAPSULE PO PRN (20:45)
[2019-04-21] MEDS ORDERED: HYDROcodone/ACETAMIN 5-325 MG TAB (NORCO/ VICODIN) PO PRN (20:45)
[2019-04-21] MEDS ORDERED: ONDANSETRON 4 MG ODT TAB PO PRN (20:45)
[2019-04-21] MEDS: MUPIROCIN 1 GM OIN.PF.APP NS SCH (21:00)
[2019-04-21] MEDS ORDERED: BISACODYL 10 MG/SUPPOSITORY RC SCH (21:00)
[2019-04-21] MEDS: FAMOTIDINE 20 MG TABLET PO SCH (21:05)
[2019-04-21] MEDS: OXcarbazepine 150 MG TABLET(TRILEPTAL) PO SCH (21:05)
[2019-04-21] MEDS: ATORVASTATIN 20 MG TABLET PO SCH (21:05)
[2019-04-21 21:27] VITALS: BP_SYST 125
[2019-04-22] MEDS: PIPERACILLIN/TAZO 3.375/DEX-IS 50 ML IV SCH ×5 (00:35→23:57)
[2019-04-22 00:37] VITALS: BP_SYST 108
[2019-04-22 08:00] VITALS: BP_SYST 126
[2019-04-22] MEDS: OXcarbazepine 150 MG TABLET(TRILEPTAL) PO SCH ×2 (08:58→21:14)
[2019-04-22] MEDS: FAMOTIDINE 20 MG TABLET PO SCH ×2 (08:58→21:14)
[2019-04-22] MEDS: MUPIROCIN 1 GM OIN.PF.APP NS SCH ×2 (08:59→21:00)
[2019-04-22] MEDS: BISACODYL 10 MG/SUPPOSITORY RC SCH (08:59)
[2019-04-22] MEDS ORDERED: SCOPOLAMINE HYDROBROMIDE 1.5 MG PATCH .72 H (TRANSDERM-SCOP) TD SCH (09:00)
[2019-04-22] MEDS: 0.45% NACL 1,000 ML IV SCH (09:06)
[2019-04-22 11:27] VITALS: BP_SYST 117
[2019-04-22] MEDS: MECLIZINE HCL 25 MG TABLET (ANITVERT) PO PRN (13:03)
[2019-04-22 15:06] VITALS: BP_SYST 118
[2019-04-22] MEDS: ATORVASTATIN 20 MG TABLET PO SCH (21:14)
[2019-04-23 02:37] VITALS: BP_SYST 120
[2019-04-23] MEDS: 0.45% NACL 1,000 ML IV SCH ×2 (02:37→21:44)
[2019-04-23] MEDS: PIPERACILLIN/TAZO 3.375/DEX-IS 50 ML IV SCH ×3 (05:27→17:54)
[2019-04-23 07:14] LABS: EOSINOPHILS # (AUTO) 0.3 K/uL (0.0-0.4); EOSINOPHILS % (AUTO) 7.8 % (0.0-4.0); HEMATOCRIT 39.1 % (36-48); HEMOGLOBIN 13.1 g/dL (12.0-16.0); LYMPHOCYTES # (AUTO) 0.9 K/uL (1.0-5.5); LYMPHOCYTES % (AUTO) 25.9 % (20.5-51.5); MEAN CORPUSCULAR HEMOGLOBIN 33 pg (27-31); MEAN CORPUSCULAR HGB CONC 34 % (32-36); MEAN CORPUSCULAR VOLUME 98 fL (79.0-98.0); MONOCYTES # (AUTO) 0.4 K/uL (0.0-1.0); MONOCYTES % (AUTO) 11.2 % (1.7-9.3); NEUTROPHILS # (AUTO) 1.8 K/uL (1.8-7.7); NEUTROPHILS % (AUTO) 54.1 % (40.0-70.0); RED BLOOD CELL COUNT(AUTO) 3.98 MIL/uL (4.2-6.2); RED CELL DISTRIBUTION WIDTH 13.4 % (9.0-15.0)
[2019-04-23 07:25] LABS: ANION GAP 4 (5-15); CALCIUM 8.2 mg/dL (8.4-11.0); CHLORIDE 105 mmol/L (98-107); CREATININE 0.89 mg/dL (0.55-1.30); GLUCOSE 93 mg/dL (70-99); POTASSIUM 3.8 mmol/L (3.5-5.1); SODIUM SERUM 136 mmol/L (136-145); UREA NITROGEN, BLOOD 13 mg/dL (8-21)
[2019-04-23 07:41] LABS: WHITE BLOOD COUNT (AUTO) 3.4 K/uL (4.8-10.8)
[2019-04-23 08:00] VITALS: BP_SYST 123
[2019-04-23] MEDS: BISACODYL 10 MG/SUPPOSITORY RC SCH (08:48)
[2019-04-23] MEDS: FAMOTIDINE 20 MG TABLET PO SCH ×2 (08:48→21:00)
[2019-04-23] MEDS: OXcarbazepine 150 MG TABLET(TRILEPTAL) PO SCH ×2 (08:49→21:00)
[2019-04-23 09:43] LABS: PLATELET COUNT (AUTO) 125 K/uL (130-430)
[2019-04-23] MEDS ORDERED: MUPIROCIN 2% TOPICAL OINTMENT 22 GM NS ONE (12:00)
[2019-04-23 12:51] VITALS: BP_SYST 131
[2019-04-23] MEDS: MECLIZINE HCL 25 MG TABLET (ANITVERT) PO PRN (13:14)
[2019-04-23] MEDS: SCOPOLAMINE HYDROBROMIDE 1.5 MG PATCH .72 H (TRANSDERM-SCOP) TD SCH (17:51)
[2019-04-23 18:13] VITALS: BP_SYST 123
[2019-04-23 19:31] LABS: EOSINOPHILS # (AUTO) 0.3 K/uL (0.0-0.4); EOSINOPHILS % (AUTO) 7.1 % (0.0-4.0); HEMATOCRIT 41.3 % (36-48); HEMOGLOBIN 13.6 g/dL (12.0-16.0); LYMPHOCYTES # (AUTO) 0.9 K/uL (1.0-5.5); LYMPHOCYTES % (AUTO) 19.9 % (20.5-51.5); MEAN CORPUSCULAR HEMOGLOBIN 33 pg (27-31); MEAN CORPUSCULAR HGB CONC 33 % (32-36); MONOCYTES # (AUTO) 0.4 K/uL (0.0-1.0); MONOCYTES % (AUTO) 9.2 % (1.7-9.3); NEUTROPHILS # (AUTO) 2.7 K/uL (1.8-7.7); NEUTROPHILS % (AUTO) 62.8 % (40.0-70.0); PLATELET COUNT (AUTO) 140 K/uL (130-430); RED BLOOD CELL COUNT(AUTO) 4.15 MIL/uL (4.2-6.2); RED CELL DISTRIBUTION WIDTH 13.5 % (9.0-15.0); WHITE BLOOD COUNT (AUTO) 4.3 K/uL (4.8-10.8)
[2019-04-23 19:36] LABS: MEAN CORPUSCULAR VOLUME 100 fL (79.0-98.0)
[2019-04-23 19:42] LABS: ANION GAP 6 (5-15); CALCIUM 8.4 mg/dL (8.4-11.0); CHLORIDE 104 mmol/L (98-107); CREATININE 0.96 mg/dL (0.55-1.30); GLUCOSE 166 mg/dL (70-99); POTASSIUM 4.7 mmol/L (3.5-5.1); SODIUM SERUM 135 mmol/L (136-145); UREA NITROGEN, BLOOD 17 mg/dL (8-21)
[2019-04-23] MEDS: ATORVASTATIN 20 MG TABLET PO SCH (21:00)
[2019-04-23] MEDS: MUPIROCIN 2% TOPICAL OINTMENT 22 GM NS SCH (21:00)
[2019-04-24] MEDS: PIPERACILLIN/TAZO 3.375/DEX-IS 50 ML IV SCH ×3 (00:05→12:44)
[2019-04-24 00:14] VITALS: BP_SYST 122
[2019-04-24] MEDS: BISACODYL 10 MG/SUPPOSITORY RC SCH (09:00)
[2019-04-24 09:02] VITALS: BP_SYST 134
[2019-04-24] MEDS: MUPIROCIN 2% TOPICAL OINTMENT 22 GM NS SCH ×2 (10:03→22:18)
[2019-04-24] MEDS: FAMOTIDINE 20 MG TABLET PO SCH ×2 (10:04→22:18)
[2019-04-24] MEDS: OXcarbazepine 150 MG TABLET(TRILEPTAL) PO SCH ×2 (10:04→22:18)
[2019-04-24] MEDS: 0.45% NACL 1,000 ML IV SCH ×3 (10:11→22:18)
[2019-04-24 11:10] VITALS: BP_SYST 134
[2019-04-24] MEDS ORDERED: DIPHENOXYLATE HCL/ATROP SULF 2.5 MG TAB PO PRN (12:30)
[2019-04-24 12:52] VITALS: BP_SYST 120
[2019-04-24] MEDS ORDERED: CHOLESTYRAMINE/SUCROSE 4 GM/PACKET PO ONE (13:00)
[2019-04-24] MEDS: metroNIDAZOLE 500 MG TABLET PO SCH ×2 (15:15→22:18)
[2019-04-24 16:49] VITALS: BP_SYST 125
[2019-04-24 20:00] VITALS: BP_SYST 140
[2019-04-24] MEDS: ATORVASTATIN 20 MG TABLET PO SCH (22:18)
[2019-04-24] MEDS: SULFAMETHOXAZOLE/TRIMETHOPR DS 1 TABLET PO SCH (22:19)
[2019-04-24] MEDS: CHOLESTYRAMINE/SUCROSE 4 GM/PACKET PO SCH (23:55)
[2019-04-25 00:18] VITALS: BP_SYST 141
[2019-04-25] MEDS: 0.45% NACL 1,000 ML IV SCH ×3 (04:37→21:14)
[2019-04-25] MEDS: metroNIDAZOLE 500 MG TABLET PO SCH ×3 (05:51→21:13)
[2019-04-25] MEDS: BISACODYL 10 MG/SUPPOSITORY RC SCH (09:00)
[2019-04-25] MEDS: FAMOTIDINE 20 MG TABLET PO SCH ×2 (10:45→21:13)
[2019-04-25] MEDS: SULFAMETHOXAZOLE/TRIMETHOPR DS 1 TABLET PO SCH ×2 (10:45→21:13)
[2019-04-25] MEDS: CHOLESTYRAMINE/SUCROSE 4 GM/PACKET PO SCH ×2 (10:45→21:13)
[2019-04-25] MEDS: OXcarbazepine 150 MG TABLET(TRILEPTAL) PO SCH ×2 (10:46→21:13)
[2019-04-25] MEDS: MUPIROCIN 2% TOPICAL OINTMENT 22 GM NS SCH ×2 (10:48→22:18)
[2019-04-25 12:50] VITALS: BP_SYST 134
[2019-04-25] MEDS: MECLIZINE HCL 25 MG TABLET (ANITVERT) PO PRN (14:34)
[2019-04-25 16:16] VITALS: BP_SYST 127
[2019-04-25 20:00] VITALS: BP_SYST 125
[2019-04-25] MEDS: ATORVASTATIN 20 MG TABLET PO SCH (21:13)
[2019-04-26] VITALS: BP_SYST 120
[2019-04-26 03:18] VITALS: BP_SYST 115
[2019-04-26] MEDS: metroNIDAZOLE 500 MG TABLET PO SCH ×2 (05:49→13:27)
[2019-04-26 08:04] VITALS: BP_SYST 128
[2019-04-26] MEDS: BISACODYL 10 MG/SUPPOSITORY RC SCH (08:41)
[2019-04-26] MEDS: MUPIROCIN 2% TOPICAL OINTMENT 22 GM NS SCH (08:42)
[2019-04-26] MEDS: 0.45% NACL 1,000 ML IV SCH ×2 (08:42→08:46)
[2019-04-26] MEDS: CHOLESTYRAMINE/SUCROSE 4 GM/PACKET PO SCH (08:43)
[2019-04-26] MEDS: OXcarbazepine 150 MG TABLET(TRILEPTAL) PO SCH (08:43)
[2019-04-26] MEDS: FAMOTIDINE 20 MG TABLET PO SCH (08:43)
[2019-04-26] MEDS: SULFAMETHOXAZOLE/TRIMETHOPR DS 1 TABLET PO SCH (08:43)
[2019-04-26] MEDS: MECLIZINE HCL 25 MG TABLET (ANITVERT) PO PRN (08:53)
[2019-04-26 12:39] VITALS: BP_SYST 117
[2019-04-26] MEDS: SCOPOLAMINE HYDROBROMIDE 1.5 MG PATCH .72 H (TRANSDERM-SCOP) TD SCH (14:37)
[2019-04-26 14:51] VITALS: BP_SYST 132
[2019-04-26 16:00] VITALS: BP_SYST 132
== END 2019-04-26 18:21 | DRG 871 ==
LOC: SED 12:15 → SMU 14:44 → SED 15:15 → SMU 15:45
PROVIDERS: ADMIT Internal Medicine; ATTEND Internal Medicine
DX: A41.9 Sepsis, unspecified organism (principal); N18.6 End stage renal disease; N39.0 Urinary tract infection, site not specified; I12.0 Hypertensive chronic kidney disease with stage 5 chronic kidney disease or end stage renal disease; B96.4 Proteus (mirabilis) (morganii) as the cause of diseases classified elsewhere; E11.22 Type 2 diabetes mellitus with diabetic chronic kidney disease; F03.90 Unspecified dementia, unspecified severity, without behavioral disturbance, psychotic disturbance, mood disturbance, and anxiety; F32.9 Major depressive disorder, single episode, unspecified; G40.909 Epilepsy, unspecified, not intractable, without status epilepticus; J44.9 Chronic obstructive pulmonary disease, unspecified; Z88.0 Allergy status to penicillin; Z79.4 Long term (current) use of insulin; Z79.899 Other long term (current) drug therapy
CPT/HCPCS: 36415; 71045; 80048; 80053; 81000-TC; 82962; 83605; 84484; 85025; 85610-TC; 85730-TC; 87040-TC; 87081; 87086; 87186-TC; 93005; 96365; 99285; J1956; J2543; J8597

== ENCOUNTER 2019-05-28 22:55 | Emergency (ER) | payer OTHER, MEDICAID ==
[~2019-05-28] VITALS: Ht 147.3 cm; Wt 68.0 kg
[~2019-05-28 22:55] MED LIST changes: -ALBU8.5H8 INH; -CRAN450C PO; -DICL100G19 TP; +FAMO20TA8 PO; -RANI-362 PO
--- NOTE | 2019-05-28 22:58 | NUR ---
Patient to ER bed 3 to gown for evaluation. Side rails up. Report given to Mignon PALMER.
[2019-05-28 23:01] VITALS: BP_SYST 105
--- NOTE | 2019-05-28 23:03 | NUR ---
ER at bedside examining patient.
[2019-05-28] MEDS ORDERED: LEVOFLOXACIN 500 MG/D5W 100 ML IV ONE (23:30)
[2019-05-28] MEDS ORDERED: NACL 0.9% 1,000 ML IV ONE (23:30)
--- NOTE | 2019-05-28 23:30 | NUR ---
Pt came to the ED for urinary burning, frequency and urgency. States "it feels sore." Pain is 9/10. Denies n/v/d or fever. No other complaints/injuries noted. Will cont. to monitor.
[2019-05-28 23:47] LABS: BILIRUBIN,URINE NEGATIVE (NEGATIVE); BLOOD, URINE 1+ (NEGATIVE); CLARITY/URINE TURBID (CLEAR); COLOR,URINE YELLOW (YELLOW); GLUCOSE,URINE NEGATIVE (NEGATIVE); KETONES,URINE NEGATIVE (NEGATIVE); LEUKOCYTE ESTERASE ,URINE 3+ (NEGATIVE); NITRITE, URINE NEGATIVE (NEGATIVE); PROTEIN URINE NEGATIVE (NEGATIVE); UROBILINOGEN,URINE 0.2 (0.2-1.0)
[2019-05-29 00:12] LABS: BASOPHILS # (AUTO) 0.1 K/uL (0.0-0.2); BASOPHILS % (AUTO) 2.6 % (0.0-2.0); EOSINOPHILS # (AUTO) 0.2 K/uL (0.0-0.4); EOSINOPHILS % (AUTO) 5.2 % (0.0-4.0); HEMATOCRIT 37.6 % (36-48); HEMOGLOBIN 12.5 g/dL (12.0-16.0); LYMPHOCYTES # (AUTO) 0.9 K/uL (1.0-5.5); LYMPHOCYTES % (AUTO) 20.9 % (20.5-51.5); MEAN CORPUSCULAR HEMOGLOBIN 33 pg (27-31); MEAN CORPUSCULAR HGB CONC 33 % (32-36); MEAN CORPUSCULAR VOLUME 99 fL (79.0-98.0); MONOCYTES # (AUTO) 0.3 K/uL (0.0-1.0); NEUTROPHILS # (AUTO) 2.7 K/uL (1.8-7.7); NEUTROPHILS % (AUTO) 64.3 % (40.0-70.0); PLATELET COUNT (AUTO) 151 K/uL (130-430); RED BLOOD CELL COUNT(AUTO) 3.82 MIL/uL (4.2-6.2); RED CELL DISTRIBUTION WIDTH 13.8 % (9.0-15.0); WHITE BLOOD COUNT (AUTO) 4.3 K/uL (4.8-10.8)
[2019-05-29 00:21] LABS: ANION GAP 7 (5-15); CALCIUM 7.4 mg/dL (8.4-11.0); CHLORIDE 104 mmol/L (98-107); CREATININE 0.83 mg/dL (0.55-1.30); GLUCOSE 112 mg/dL (70-99); POTASSIUM 4.3 mmol/L (3.5-5.1); SODIUM SERUM 139 mmol/L (136-145); UREA NITROGEN, BLOOD 18 mg/dL (8-21)
[2019-05-29 00:27] LABS: ALANINE AMINOTRANSFERASE 21 U/L (12-78); ALBUMIN 3.1 g/dL (3.4-4.8); ASPARTATE AMINOTRANSFERASE 19 U/L (10-37); TOTAL BILIRUBIN 0.2 mg/dL (0.0-1.0)
--- NOTE | 2019-05-29 00:30 | NUR ---
Pt resting comfortably in bed, no signs of acute distress. Will cont. to monitor.
[2019-05-29 00:54] LABS: BACTERIA,URINE MODERATE /HPF (None Seen); WBC,URINE 50-80 /HPF (0-3)
--- NOTE | 2019-05-29 01:30 | NUR ---
Pt resting comfortably in bed, no signs of acute distress. Will cont. to monitor.
[2019-05-29 02:00] VITALS: BP_SYST 105
--- NOTE | 2019-05-29 02:00 | NUR ---
Patient given written and verbal discharge instructions and verbalizes understanding. ER MD Dr. Henry discussed with patient the results and treatment provided. Patient in stable condition. ID arm band removed. IV catheter removed intact and dressing applied, no active bleeding. Rx of ciproflaxin and pyridium given. Patient educated on pain management and to follow up with PMD. Pain Scale 0/10. Opportunity for questions provided and answered. Medication side effect fact sheet provided.
--- NOTE | 2019-05-29 02:05 | NUR ---
Pt left with EMS via reure, report given to SPENCER Jung.
== END 2019-05-29 02:00 | disposition home or self-care (01) ==
LOC: SED 22:55
DX: N39.0 Urinary tract infection, site not specified (principal); J44.9 Chronic obstructive pulmonary disease, unspecified; I10 Essential (primary) hypertension; N28.9 Disorder of kidney and ureter, unspecified; F41.9 Anxiety disorder, unspecified; Z88.0 Allergy status to penicillin; Z79.899 Other long term (current) drug therapy; Z79.4 Long term (current) use of insulin
CPT/HCPCS: 36415; 80053; 81000; 85025; 87040; 87086; 96365; 99283; J1956; J7030

== ENCOUNTER 2019-11-17 17:20 | Inpatient (IN) | payer OTHER, MEDICAID, SELFPAY ==
[~2019-11-17] VITALS: Ht 147.3 cm; Wt 69.4 kg
--- NOTE | 2019-11-17 17:25 | NUR ---
Note undone in EDM - 11/17/19 at 1814 by SERENITY Pt. BIB BLS from [facility] with c/o cough and right back pain that radiates to to the right arm x few days. Pt. is is afebrile, skin is warm, dry, and intact. Pt. denies n/v/c, and opther symptoms Expiratory wheezes heard on the left upper lobes. Pt. has +3 bilateral leg edema that is worse on the right side. VSS. Will continue to monitor.
--- NOTE | 2019-11-17 17:25 | NUR ---
Pt. BIB BLS from [facility] with c/o cough and right back pain that radiates to to the right arm x few days. Pt. is is afebrile, skin is warm, dry, and intact. Pt. reports nausea, dizziness, but denies pther symptoms Expiratory wheezes heard on the left upper lobes. Pt. has +3 bilateral leg edema that is worse on the right side. VSS. Will continue to monitor.
--- NOTE | 2019-11-17 17:25 | NUR ---
Pt. brought into Room #2, placed on monitor, with side rails up. Awaiting evaluation from MD.
--- NOTE | 2019-11-17 17:30 | NUR ---
Radiology at bedside with pt.
[2019-11-17 17:59] LABS: BASOPHILS % (AUTO) 0.2 % (0.0-2.0); EOSINOPHILS # (AUTO) 0.2 K/uL (0.0-0.4); EOSINOPHILS % (AUTO) 2.5 % (0.0-4.0); HEMATOCRIT 40.8 % (36-48); HEMOGLOBIN 13.3 g/dL (12.0-16.0); LYMPHOCYTES # (AUTO) 0.3 K/uL (1.0-5.5); LYMPHOCYTES % (AUTO) 3.8 % (20.5-51.5); MEAN CORPUSCULAR HEMOGLOBIN 32 pg (27-31); MEAN CORPUSCULAR HGB CONC 33 % (32-36); MEAN CORPUSCULAR VOLUME 97 fL (79.0-98.0); MONOCYTES # (AUTO) 0.5 K/uL (0.0-1.0); MONOCYTES % (AUTO) 5.7 % (1.7-9.3); NEUTROPHILS # (AUTO) 7.4 K/uL (1.8-7.7); NEUTROPHILS % (AUTO) 87.8 % (40.0-70.0); PLATELET COUNT (AUTO) 159 K/uL (130-430); RED CELL DISTRIBUTION WIDTH 14.7 % (9.0-15.0); WHITE BLOOD COUNT (AUTO) 8.4 K/uL (4.8-10.8)
--- NOTE | 2019-11-17 18:00 | NUR ---
at bedside examining pt.
[2019-11-17 18:10] LABS: ANION GAP 3 (5-15); CALCIUM 8.6 mg/dL (8.4-11.0); CHLORIDE 101 mmol/L (98-107); GLUCOSE 122 mg/dL (70-99); POTASSIUM 4.3 mmol/L (3.5-5.1); SODIUM SERUM 133 mmol/L (136-145); UREA NITROGEN, BLOOD 16 mg/dL (8-21)
[2019-11-17 18:15] LABS: ALANINE AMINOTRANSFERASE 83 U/L (12-78); ALBUMIN 3.1 g/dL (3.4-4.8); ASPARTATE AMINOTRANSFERASE 33 U/L (10-37); C-REACTIVE PROTEIN QUANT 8.7 mg/dL (0-0.5); INR 0.9 (0.8-1.2); PROTHROMBIN TIME 9.4 SECS (9.5-12.5); TOTAL BILIRUBIN 0.4 mg/dL (0.0-1.0)
--- NOTE | 2019-11-17 19:00 | NUR ---
End of life care decisions discussed with by Dr. Cooper Opportunity for questions and concerns addressed. Patient's code status is FULL CODE paperwork completed and placed in chart.
[2019-11-17] MEDS ORDERED: VITD400 PO (19:16)
[2019-11-17] MEDS ORDERED: CIPR-211 PO (19:19)
[2019-11-17] MEDS ORDERED: ASCO500T20 PO (19:19)
[2019-11-17] MEDS ORDERED: METH1TAB PO (19:23)
[2019-11-17] MEDS ORDERED: MOM PO (19:23)
[2019-11-17 19:29] VITALS: BP_SYST 172
--- NOTE | 2019-11-17 19:30 | NUR ---
Medication reconciliation completed with information provided by [facility]. Any prior medication reconciliation on file was reviewed and corrected.
[2019-11-17] MEDS ORDERED: BISA-79 RC (19:31)
--- NOTE | 2019-11-17 19:37 | NUR ---
CRITICAL RESULT FIBRINOGEN 768. DR MCGRAW NOTIFIED
--- NOTE | 2019-11-17 20:40 | NUR ---
22g angiocath placed to the right hand on the index finger
--- NOTE | 2019-11-17 20:40 | NUR ---
O2 sat was in high 80s, pt placed on 2L NC and is now at 95
--- NOTE | 2019-11-17 21:30 | NUR ---
Personal Belongings List Complete
--- NOTE | 2019-11-17 21:39 | NUR ---
Patient will be admitted to care of Dr. Perez. Admitted to Tele unit. Will go to room 127. Belongings list completed. Complete and up to date summary report printed. SBAR report to be given at bedside with opportunity for questions.
--- NOTE | 2019-11-17 22:07 | NUR ---
ADMIT NOTE Received pt from ER to the floor with a diagnosis of pui, aloC, uti. Admission process initiated. patient oriented to pain management, safety and call light-teach back done.
--- NOTE | 2019-11-17 22:10 | NUR ---
ROUNDS PATIENT IN BED, AWAKE, ALERT, CONFUSED, NOT IN DISTRESS, VITALS STABLE. DENIES ANY PAIN AND DISCOMFORT AT THIS TIME. ADMISSION ASSESSMENT DONE AND DOCUEMNTED. SEE FLOWSHEET. NEEDS ATTENDED TO. SAFETY AND FALL MEASURES IN PLACED. BED IN LOW AND LOCKED POSITION. CALL LIGHT PLACED WITHIN REACH.
[2019-11-17 22:27] LABS: BILIRUBIN,URINE NEGATIVE (NEGATIVE); BLOOD, URINE 2+ (NEGATIVE); CLARITY/URINE SL CLOUDY (CLEAR); COLOR,URINE YELLOW (YELLOW); GLUCOSE,URINE NEGATIVE (NEGATIVE); KETONES,URINE 1+ (NEGATIVE); LEUKOCYTE ESTERASE ,URINE 3+ (NEGATIVE); NITRITE, URINE NEGATIVE (NEGATIVE); PROTEIN URINE NEGATIVE (NEGATIVE); UROBILINOGEN,URINE 0.2 (0.2-1.0)
[2019-11-17 22:39] LABS: BACTERIA,URINE FEW /HPF (None Seen); WBC,URINE 80-100 /HPF (0-3)
[2019-11-17 22:43] VITALS: BP_SYST 117
[2019-11-17] MEDS: 0.45% NACL 1,000 ML IV SCH (22:52)
[2019-11-17] MEDS: LEVOFLOXACIN 500 MG/D5W 100 ML IV SCH (22:52)
[2019-11-17] MEDS ORDERED: LEVOFLOXACIN 500 MG/D5W 100 ML IV ONE (23:05)
--- NOTE | 2019-11-18 00:21 | NUR ---
PATIENT RESTING: Patient resting quietly. No acute distress noted. Vital signs within normal range.
--- NOTE | 2019-11-18 01:51 | NUR ---
CONSULTATION PAGED/CALLED Reason for Consultation: ABNORMAL EKG Person Who was Notified: IAIN Consulting Physician: GHANSHYAM Sales Activity Manager Specialty: CARDIO Ordering Physician: DANIELLE
--- NOTE | 2019-11-18 01:56 | NUR ---
CONSULTATION PAGED/CALLED Reason for Consultation: R/O COVID Person Who was Notified: IAIN Consulting Physician: Lena FALK Shorts Sifter Specialty: Ordering Physician: DANIELLE
--- NOTE | 2019-11-18 02:13 | NUR ---
ROUNDS PATIENT ASLEEP, RESPIRATIONS EVEN AND UNLABORED, NO SIGNS OF ANY PAIN AND DISCOMFORT NOTED. WILL CONTINUE TO MONITOR.
--- NOTE | 2019-11-18 04:12 | NUR ---
ROUNDS PATIENT ASLEEP, NO SOB NOR PAIN AND DISCOMFORT NOTED. WILL CONTINUE TO MONITOR.
--- NOTE | 2019-11-18 06:35 | NUR ---
CLOSING NOTES PATIENT AWAKE, NO COMPLAINTS AT THIS TIME, VITALS STABLE. ALL NEEDS ATTENDED TO.SAFETY AND FALL MEASURES MAINTAINED. BED IN LOW AND LOCKED POSITION. CALL LIGHT PLACED WITHIN REACH.
[2019-11-18 06:42] LABS: BASOPHILS % (AUTO) 0.4 % (0.0-2.0); EOSINOPHILS # (AUTO) 0.3 K/uL (0.0-0.4); EOSINOPHILS % (AUTO) 5.3 % (0.0-4.0); HEMATOCRIT 39.1 % (36-48); HEMOGLOBIN 12.7 g/dL (12.0-16.0); LYMPHOCYTES # (AUTO) 0.8 K/uL (1.0-5.5); LYMPHOCYTES % (AUTO) 15.8 % (20.5-51.5); MEAN CORPUSCULAR HEMOGLOBIN 32 pg (27-31); MEAN CORPUSCULAR HGB CONC 32 % (32-36); MEAN CORPUSCULAR VOLUME 98 fL (79.0-98.0); MONOCYTES # (AUTO) 0.3 K/uL (0.0-1.0); MONOCYTES % (AUTO) 5.9 % (1.7-9.3); NEUTROPHILS # (AUTO) 3.6 K/uL (1.8-7.7); NEUTROPHILS % (AUTO) 72.6 % (40.0-70.0); PLATELET COUNT (AUTO) 138 K/uL (130-430); RED CELL DISTRIBUTION WIDTH 14.6 % (9.0-15.0)
[2019-11-18 07:06] LABS: ANION GAP 3 (5-15); CALCIUM 8.4 mg/dL (8.4-11.0); CHLORIDE 102 mmol/L (98-107); CREATININE 0.87 mg/dL (0.55-1.30); GLUCOSE 68 mg/dL (70-99); POTASSIUM 3.9 mmol/L (3.5-5.1); SODIUM SERUM 136 mmol/L (136-145); UREA NITROGEN, BLOOD 14 mg/dL (8-21)
--- NOTE | 2019-11-18 07:59 | NUR ---
Nutrition Update Hiro Scale 19 noted Pt admitted for under investigation, UTI Diet: Cardiac - Low chol/fat/2gm Na BMI: 32.0 kg/m2 RD to follow per nutrition care standards.
[2019-11-18 08:00] VITALS: BP_SYST 126
--- NOTE | 2019-11-18 08:00 | NUR ---
Initial notes- In bed, awake, alert. eating breakfast. Able to feed herself. Denies any pain or shortness of breath. on 02 1l, tolerating well. has dry cough. IVF infusing well. Has incontinent of urine. cleaned patient. Bed alrm on. call light within reach. Enc to call for help as needed.
[2019-11-18 09:18] LABS: ERYTHROCYTE SEDIMENTATION RATE 63 MM/HR (0-20)
[2019-11-18] MEDS: 0.45% NACL 1,000 ML IV SCH ×2 (09:20→17:24)
[2019-11-18] MEDS: LEVOFLOXACIN 500 MG/D5W 100 ML IV SCH (09:41)
[2019-11-18 09:57] VITALS: BP_SYST 126
[2019-11-18] MEDS ORDERED: IPRATROPIUM/ALBUTEROL SULFATE 3 ML AMPUL.NEB (DUONEB) INH PRN (10:00)
[2019-11-18] MEDS ORDERED: ACETAMINOPHEN 325 MG TABLET PO PRN (10:00)
[2019-11-18] MEDS ORDERED: DIPHENHYDRAMINE HCL 25 MG CAPSULE PO PRN (10:00)
--- NOTE | 2019-11-18 10:19 | NUR ---
MD ROUNDS Seen by Dr. Bravo at bedside.
[2019-11-18] MEDS ORDERED: BISACODYL 10 MG/SUPPOSITORY RC ONE (11:00)
[2019-11-18] MEDS ORDERED: FAMOTIDINE 20 MG TABLET PO ONE (11:00)
[2019-11-18 12:00] VITALS: BP_SYST 122
[2019-11-18] MEDS: MECLIZINE HCL 25 MG TABLET (ANITVERT) PO PRN ×2 (12:56→22:35)
--- NOTE | 2019-11-18 13:01 | NUR ---
Notes- Refused to eat lunch, Patient complains of dizziness, medicated with meclizine. Pt is asking for her seizure medications. PA of Dr. Perez here and made aware that pt is asking for her seizure meds. No acute distress noted. Instructed patient to stay still first until the medications work. Will monitor.
--- NOTE | 2019-11-18 14:00 | NUR ---
Notes- has incontinence of urine, change patient, pt is requesting diaper since she pee a lot. Pt feels better, she eats bread from her lunch tray only and drink coffee.
--- NOTE | 2019-11-18 14:43 | NUR ---
Notes- Pt is watching movie on her Ipad, she feels better. Enc. to call for help as needed.
[2019-11-18 16:32] VITALS: BP_SYST 114
--- NOTE | 2019-11-18 18:50 | NUR ---
Notes- Sit up for dinner, IV is leaking at this time. stop IV for now. DR. Olson here and seen patient. okayed to change levaquin to 250mg. No acute distress noted. will endorse
[2019-11-18 19:40] VITALS: BP_SYST 111
--- NOTE | 2019-11-18 19:40 | NUR ---
INITIAL NOTES PATIENT IS STABLE AND LAYING IN BED. NO S/S OF RESPIRATORY DISTRESS NOTED. CALL LIGHT IN REACH. PATIENT SUCCESSFULLY DEMONSTRATES USAGE OF CALL LIGHT. BED IS LOCKED, ALARMED, AND AT THE LOWEST POSITION. FALL, SAFETY, ASPIRATION, RESPIRATORY, DROPLET, AND CONTACT PRECAUTIONS WILL BE IN PLACE THROUGHOUT THE SHIFT. PLAN OF CARE IS DISCUSSED WITH PATIENT. Addendum: 11/19/19 at 0437 by Mark Li RN UPON ENTERING PT HAD A DIAPER ON. PATIENT WAS EDUCATED ON EFFECTS OF WEARING A DIAPER. PATIENT VERBALIZES UNDERSTANDING.
[2019-11-18] MEDS: FAMOTIDINE 20 MG TABLET PO SCH (20:32)
[2019-11-18] MEDS: ATORVASTATIN 20 MG TABLET PO SCH (20:32)
[2019-11-18] MEDS: AMMONIUM LACTATE 12%, 400 ML LOTION TP SCH (20:34)
[2019-11-18] MEDS ORDERED: LEVOFLOXACIN 250 MG/D5W 50 ML IV ONE (20:43)
[2019-11-18] MEDS ORDERED: LINEZOLID 300 ML IV SCH (21:00)
--- NOTE | 2019-11-18 21:40 | NUR ---
PATIENT IS STABLE AND LAYING IN BED. NO S/S OF RESPIRATORY DISTRESS NOTED. CALL LIGHT IN REACH.
[2019-11-18] MEDS: LEVOFLOXACIN 250 MG/D5W 50 ML IV SCH (22:30)
--- NOTE | 2019-11-18 22:40 | NUR ---
COMMUNICATED WITH DR. SANTOS ABOUT OXCARBAZEPINE. NO ORDERS GIVEN.
--- NOTE | 2019-11-18 23:40 | NUR ---
PATIENT IS COMPLAINING ABOUT IV ON RIGHT HAND. DC RIGHT HAND IV. TIP IN TACT. NO S/S OF MAJOR BLEEDING. NEW IV PLACED ON LEFT FOREARM. PATIENT TOLERATED WELL. PATIENT IS STABLE. NO S/S OF RESPIRATORY DISTRESS. Addendum: 11/19/19 at 0438 by Mark Li RN PATIENT CHANGED AT THIS TIME PER REQUEST. PATIENT EDUCATED ON WEARING A DIAPER AGAIN. PATIENT VERBALIZES UNDERSTANDING AND REQUESTED FOR ONE.
--- NOTE | 2019-11-19 00:01 | NUR ---
PATIENT IS WATCHING HER TABLET. PATIENT IS STABLE. NO S/S OF RESPIRATORY DISTRESS NOTED. CALL LIGHT IN REACH.
[2019-11-19 00:37] VITALS: BP_SYST 124
--- NOTE | 2019-11-19 02:26 | NUR ---
PATIENT IS STABLE AND SLEEPING IN BED. NO S/S OF RESPIRATORY DISTRESS. CALL LIGHT IN REACH.
--- NOTE | 2019-11-19 04:17 | NUR ---
PATIENT IS SLEEPING AND STABLE. NO S/S OF RESPIRATORY DISTRESS NOTED. CALL LIGHT IN REACH.
--- NOTE | 2019-11-19 06:36 | NUR ---
CLOSING NOTES PATIENT WAS CLEANED AND CHANGED AT THIS TIME. PATIENT EDUCATED ON DIAPER. PATIENT REQUESTED DIAPER. BARRIER CREAM WAS APPLIED. PATIENT TOLERATED WELL. NO S/S OF RESPIRATORY DISTRESS NOTED. CALL LIGHT IN REACH. BED IS LOCKED, ALARMED, AND AT THE LOWEST POSITION. FALL, SAFETY, ASPIRATION, CONTACT, DROPLET, AND RESPIRATORY PRECAUTIONS HAS BEEN IN PLACE THROUGHOUT THE SHIFT. WILL CONTINUE TO MONITOR UNTIL REPORT IS ENDORSED TO AM NURSE BY BEDSIDE.
[2019-11-19 06:52] LABS: BASOPHILS % (AUTO) 0.7 % (0.0-2.0); EOSINOPHILS # (AUTO) 0.3 K/uL (0.0-0.4); EOSINOPHILS % (AUTO) 7.1 % (0.0-4.0); HEMATOCRIT 38.2 % (36-48); HEMOGLOBIN 12.4 g/dL (12.0-16.0); LYMPHOCYTES # (AUTO) 0.9 K/uL (1.0-5.5); LYMPHOCYTES % (AUTO) 19.8 % (20.5-51.5); MEAN CORPUSCULAR HEMOGLOBIN 32 pg (27-31); MEAN CORPUSCULAR HGB CONC 32 % (32-36); MEAN CORPUSCULAR VOLUME 98 fL (79.0-98.0); MONOCYTES # (AUTO) 0.5 K/uL (0.0-1.0); MONOCYTES % (AUTO) 10.2 % (1.7-9.3); NEUTROPHILS # (AUTO) 2.8 K/uL (1.8-7.7); NEUTROPHILS % (AUTO) 62.2 % (40.0-70.0); PLATELET COUNT (AUTO) 142 K/uL (130-430); RED BLOOD CELL COUNT(AUTO) 3.91 MIL/uL (4.2-6.2); RED CELL DISTRIBUTION WIDTH 14.6 % (9.0-15.0); WHITE BLOOD COUNT (AUTO) 4.5 K/uL (4.8-10.8)
[2019-11-19 07:10] LABS: ANION GAP 5 (5-15); CALCIUM 8.4 mg/dL (8.4-11.0); CHLORIDE 105 mmol/L (98-107); CREATININE 0.71 mg/dL (0.55-1.30); GLUCOSE 102 mg/dL (70-99); POTASSIUM 3.9 mmol/L (3.5-5.1); SODIUM SERUM 140 mmol/L (136-145); UREA NITROGEN, BLOOD 15 mg/dL (8-21)
[2019-11-19 07:14] LABS: PROTHROMBIN TIME 10.2 SECS (9.5-12.5)
[2019-11-19 07:25] LABS: ALANINE AMINOTRANSFERASE 51 U/L (12-78); ALBUMIN 2.5 g/dL (3.4-4.8); ASPARTATE AMINOTRANSFERASE 22 U/L (10-37); LACTATE DEHYDROGENASE 106 U/L (81-234); THYROID STIMULATING HORMONE 6.96 uIu/mL (0.36-3.74); TOTAL BILIRUBIN 0.2 mg/dL (0.0-1.0)
--- NOTE | 2019-11-19 07:27 | NUR ---
Opening Note SBAR report received from night auditor RN, patient resting in bed, respirations even and unlabored, no acute distress noted, educated patient on use of call light and asked to call for assistance, patient verbalized understanding, call light in reach, bed in low and locked position, bed alarm on.
[2019-11-19 08:00] VITALS: BP_SYST 110
[2019-11-19] MEDS: FAMOTIDINE 20 MG TABLET PO SCH ×2 (08:21→20:53)
[2019-11-19] MEDS: BISACODYL 10 MG/SUPPOSITORY RC SCH (08:22)
[2019-11-19] MEDS: 0.45% NACL 1,000 ML IV SCH ×2 (08:22→22:15)
[2019-11-19] MEDS: AMMONIUM LACTATE 12%, 400 ML LOTION TP SCH ×2 (08:22→20:53)
[2019-11-19 09:01] LABS: ERYTHROCYTE SEDIMENTATION RATE 62 MM/HR (0-20)
--- NOTE | 2019-11-19 09:15 | NUR ---
RN Rounds patient sitting up in bed eating breakfast, tolerating well, patient denies any nausea or vomiting, patient denies any pain.
--- NOTE | 2019-11-19 09:19 | NUR ---
PAGECortes SANTOS FOR LAB RESULTS S/W MARGOT LÓPEZ
[2019-11-19] MEDS ORDERED: OXcarbazepine 150 MG TABLET(TRILEPTAL) PO ONE (09:45)
[2019-11-19 09:56] LABS: CHOLESTEROL 141 mg/dL (<200); HDL CHOLESTEROL 46 mg/dL (>55); LDL CHOLESTEROL 75 mg/dL (<100); TRIGLYCERIDES 77 mg/dL (30-150)
[2019-11-19 10:02] LABS: C-REACTIVE PROTEIN QUANT 7.2 mg/dL (0-0.5)
[2019-11-19] MEDS: MECLIZINE HCL 25 MG TABLET (ANITVERT) PO PRN (10:39)
--- NOTE | 2019-11-19 11:00 | NUR ---
PAGED LUIZA STEWART FOR CRITICAL LABS
--- NOTE | 2019-11-19 11:35 | NUR ---
RN Rounds patient resting in bed, patient reports dizziness is controlled, IV fluid infusing well to left forearm IV site, no acute distress noted.
[2019-11-19 12:00] VITALS: BP_SYST 124
--- NOTE | 2019-11-19 14:05 | NUR ---
RN Rounds patient resting in bed, respirations even and unlabored on 2L nasal cannula, no acute distress noted, patient denies any pain.
[2019-11-19 16:00] VITALS: BP_SYST 125
--- NOTE | 2019-11-19 16:30 | NUR ---
PAYROLL ADMINISTRATIVE ASSISTANT Rounds Rounds with Whitney Macias PAYROLL ADMINISTRATIVE ASSISTANT for Dr. 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 Olson was paged but has not yet been reached, per Whitney wait for Dr. Olson for orders, informed Whitney that patient does not have any DVT prophylaxis and that patient is not ambulatory, no new orders.
--- NOTE | 2019-11-19 18:10 | NUR ---
Dinner patient sitting up in bed eating dinner, tolerating well, patient denies any nausea or vomiting.
[2019-11-19] MEDS: LEVOFLOXACIN 250 MG/D5W 50 ML IV SCH (18:19)
--- NOTE | 2019-11-19 19:04 | NUR ---
PAGED: PAGED DR. DILEEP JARRETT I SPOKE WITH CASSY
--- NOTE | 2019-11-19 19:20 | NUR ---
OPENING NOTE: Patient is awake at this time watching her IPAD, AOx3. No s/s of acute distress. 2L NC attached and operating. Breathing is even and unlabored. IVF are infusing well. IV site is without signs of redness, infection, or infiltration. Bed is locked in lowest position, bed alarm is on, call light with patient. Patient educated on importance and use of call light. Patient verbalized understanding and demonstrated proper use. Seizure pads are in place. SCDs are attached and operating. No further needs at this time. Will continue to monitor.
--- NOTE | 2019-11-19 19:24 | NUR ---
Closing Note SBAR report given to receiving RN, patient resting in bed, respirations even and unlabored on 2L nasal cannula, no acute distress noted, patient denies any pain, site monitor paged Dr. Cortes Olson regarding negative COVID results, awaiting call back, educated patient on use of call light and asked to call for assistance, patient verbalized understanding, call light in reach, bed in low and locked position, bed alarm on, care endorsed to technical service engineer RN.
--- NOTE | 2019-11-19 19:42 | NUR ---
PAGED I PAGED DR. DILEEP JARRETT I SPOKE WITH CASSY LÓPEZ THIS IS THE SECOND PAGE
[2019-11-19 20:00] VITALS: BP_SYST 133
--- NOTE | 2019-11-19 20:22 | NUR ---
dr. vandana lundberg call back- clarify isolation for mrsa nares only. no covid 19 isolation and can be transfer to other room.
[2019-11-19] MEDS: OXcarbazepine 150 MG TABLET(TRILEPTAL) PO SCH (20:53)
[2019-11-19] MEDS: ATORVASTATIN 20 MG TABLET PO SCH (20:53)
[2019-11-19] MEDS ORDERED: MUPIROCIN 1 GM OIN.PF.APP NS SCH (21:00)
--- NOTE | 2019-11-19 22:00 | NUR ---
Motley of Care: Received report from Chastity RN, Patient is in bed, watching tablet. No acute distress. Even, nonlabored breathing on 2L nasal cannula. IV side is dry and intact. IV fluids infusing well. Bed is at lowest position, locked, side rails up x2. Call light is with patient. Contact isolation in place. Safety and fall precautions in place. Will continue plan of care.
--- NOTE | 2019-11-19 22:00 | NUR ---
SANTY CARE/TRANSFER OF CARE: Patient was transferred to banner room via gurney. Upon arrival, santy care was provided to the patient. Patient was able to assist with turning. Patient had labored breathing during turning, however, saturated at 98% on 2L NC at this time. Patient was educated on deep breathing. Patient verbalized understanding and demonstrated back properly. Patient no longer with labored breathing. Patient states she gets out of breath upon activity, but regains her breath afterwards. Patient repositioned comfortably in bed. Transfer of care occured at this time. Bedside report given to SPENCER Diallo and SPENCER Aj. All questions answered.
[2019-11-20 00:51] VITALS: BP_SYST 121
--- NOTE | 2019-11-20 01:00 | NUR ---
Rounds: Patient is in bed sleeping. No signs of acute distress. Respirations are even and nonlabored. IV site is dry and intact. IV fluids infusing well. Bed is at lowest position, locked. Bed alarm on. Side rails up x3. Call light is with patient. Seizure precautions in place. Contact isolation in place. Will continue to monitor.
--- NOTE | 2019-11-20 03:30 | NUR ---
Rounds: Patient is in bed sleeping. No signs of acute distress. Even, nonlabored respirations on 2L nasal cannula. Seizure pad in place. Contact isolation precautions in place. Safety and fall precautions in place. Will continue to monitor.
--- NOTE | 2019-11-20 06:54 | NUR ---
Nutrition Update Hiro Scale 15 noted. Pt admitted for PUI, Altered Diet: Cardiac BMI: 32 kg/m2 RD to follow per nutrition care standards.
--- NOTE | 2019-11-20 06:56 | NUR ---
Closing Note: Patient is in bed, awake. No signs of acute distress. Even and nonlabored breathing on 2L nasal cannula. IV site is patent and intact. IVF infusing well. All needs met. 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 Seizure precautions in place. Patient only wanted one seizure pad. Safety and fall precautions in place. Will endorse care to dayshift RN.
--- NOTE | 2019-11-20 08:00 | NUR ---
Initial notes Awake, alert forgetful, Eating breakfast. Denies any pain or discomfort. IVF infusing well. Incontinent of bowel and bladder. Safety precaution observed. Call light in reach. will continue to monitor.
[2019-11-20 08:04] VITALS: BP_SYST 126
[2019-11-20] MEDS: AMMONIUM LACTATE 12%, 400 ML LOTION TP SCH ×2 (08:20→21:00)
[2019-11-20] MEDS: BISACODYL 10 MG/SUPPOSITORY RC SCH (08:20)
[2019-11-20] MEDS: OXcarbazepine 150 MG TABLET(TRILEPTAL) PO SCH ×2 (08:31→21:53)
[2019-11-20] MEDS: MUPIROCIN 2% TOPICAL OINTMENT 22 GM NS SCH ×2 (08:31→21:55)
[2019-11-20] MEDS: FAMOTIDINE 20 MG TABLET PO SCH ×2 (08:31→21:53)
--- NOTE | 2019-11-20 09:00 | NUR ---
Notes- Has incontinence of urine. change patient, able to move in bed.
--- NOTE | 2019-11-20 11:00 | NUR ---
Notes- In bed, watching movie on her IPAD. Enc. patient to call if she needs a nurse. Call light in reach.
[2019-11-20 12:25] VITALS: BP_SYST 102
[2019-11-20] MEDS: 0.45% NACL 1,000 ML IV SCH (12:54)
--- NOTE | 2019-11-20 16:00 | NUR ---
Notes- In bed, watching movie on her Ipad. Enc. to call for help as needed.
[2019-11-20 16:12] VITALS: BP_SYST 99
--- NOTE | 2019-11-20 18:28 | NUR ---
Notes- Eating dinner, seen by Dr. Perez. No change in assessment. denies any pain or discomfort, All needs meet. Will endorse
--- NOTE | 2019-11-20 19:30 | NUR ---
OPENING NOTES Patient resting, no signs of acute respiratory distress observed, watching Ipad. IV site patent, all dressings c/d/i, IVF running at rate ordered by MD. 1L nasal canula, O2 saturation 97%. Call light within reach, bed alarm on, bed at lowest position. Seizure pads refused by patient after patient education provided. SCDs on. Will continue to monitor.
[2019-11-20 20:00] VITALS: BP_SYST 108
[2019-11-20] MEDS: ATORVASTATIN 20 MG TABLET PO SCH (21:53)
[2019-11-21] MEDS: 0.45% NACL 1,000 ML IV SCH ×3 (00:07→22:32)
--- NOTE | 2019-11-21 00:15 | NUR ---
Patient is resting, eyes closed, HOB elevated. Bed alarm on, bed at lowest position. Will continue to monitor.
[2019-11-21 00:49] VITALS: BP_SYST 98
--- NOTE | 2019-11-21 01:56 | NUR ---
Patient is resting, eyes closed, even, unlabored breathing noted. Will continue to monitor.
--- NOTE | 2019-11-21 04:11 | NUR ---
Patient is resting, no signs of acute respiratory distress observed. Will continue to monitor.
--- NOTE | 2019-11-21 06:17 | NUR ---
CLOSING NOTES Patient is resting, no signs of acute respiratory distress or seizures observed throughout shift. IV site patent, dressings c/d/i. Call light within reach, seizure pads refused throughout shift, bed alarm on, turning provided throughout shift, scd's on, bed at lowest position. All needs met throughout shift. Will endorse care to oncoming shift.
--- NOTE | 2019-11-21 07:30 | NUR ---
Opening Notes Patient is awake, alert and oriented x3. Patient is [place]. Patient is noted with wheezing. Patient remains on 2 liters of continuous oxygen via nasal cannula, saturating 94%-96%, tolerated well. Patient denies any pain at this time. IV site on left FA, 22 gauge, 1/2 NS @ 75 ml/hr, infusing well. Patient is noted with bilateral leg edema. Right left, pitting edema 2+, left leg, pitting edema 1+. SCDs in place. All needs met at this time. Safety and fall precautions in place. Bed in lowest position, alarm on, locked. Will continue to monitor.
[2019-11-21 08:00] VITALS: BP_SYST 120
--- NOTE | 2019-11-21 08:15 | NUR ---
Medication Administration Patient refused dulcolax suppository at this time. Per patient, "I dont need it right now, I had a bowel movement." Patients ammonium lactate ointment is also unavailable at the pharmacy as well. Pharmacy will notify nurse when medication becomes available.
[2019-11-21] MEDS: MUPIROCIN 2% TOPICAL OINTMENT 22 GM NS SCH ×2 (08:44→22:31)
[2019-11-21] MEDS: FAMOTIDINE 20 MG TABLET PO SCH ×2 (08:44→22:30)
[2019-11-21] MEDS: OXcarbazepine 150 MG TABLET(TRILEPTAL) PO SCH ×2 (08:44→22:30)
[2019-11-21] MEDS: BISACODYL 10 MG/SUPPOSITORY RC SCH ×2 (08:45→08:49)
[2019-11-21] MEDS: AMMONIUM LACTATE 12%, 400 ML LOTION TP SCH ×2 (09:00→21:00)
[2019-11-21 10:00] VITALS: BP_SYST 98
--- NOTE | 2019-11-21 10:30 | NUR ---
Notes Patient is awake, alert and oriented x3, resting in bed at this time. Patient is on her iPAD. Patient continues to remain on continuous oxygen via NC @ 1 LPM, tolerated well. Patient denies any pain at this time. All needs met at this time. Safety and fall precautions in place. Call light within reach. Bed in lowest position, alarm on, locked.
--- NOTE | 2019-11-21 12:00 | NUR ---
Notes Patient is sitting up in bed, eating lunch. Repositioned with pillows. Patient was educated to keep her nasal canula on to keep within therapeutic oxygen levels. Patient aware and agreed. Patient denies any pain at this time. All needs met at this time. Safety and fall precautions in place. Call light within reach. Bed in lowest position, alarm on, locked. Will continue to monitor.
[2019-11-21 12:20] VITALS: BP_SYST 128
--- NOTE | 2019-11-21 14:00 | NUR ---
Notes Patient is resting in bed, watching TV on her iPad. No resp distress noted at this time. Patient remains on continuous oxygen @ 1 LPM. Patient denies any pain at this time. Repositioned with pillows. Patient states she is more comfortable in a diaper when she urinates. All needs met at this time. Safety and fall precautions in place. Call light within reach. Bed in lowest position, alarm on, locked. Will continue to monitor.
--- NOTE | 2019-11-21 16:02 | NUR ---
Notes Patient is asleep in bed, eyes closed. No resp distress noted at this time. Patient remains on continuous oxygen @ 1 LPM. Patient denies any pain at this time. Repositioned with pillows. All needs met at this time. Safety and fall precautions in place. Call light within reach. Bed in lowest position, alarm on, locked. Will continue to monitor.
[2019-11-21 16:25] VITALS: BP_SYST 126
--- NOTE | 2019-11-21 18:22 | NUR ---
Closing Notes Patient is resting in bed. No resp distress noted at this time. Patient remains on continuous oxygen @ 1 LPM. Patient denies any pain at this time. Repositioned with pillows. IV site on left AC, 22 gauge intact. 1/2 NS @ 75 ml/hr, infusing well. Patient denies any NVD. All needs met at this time. Safety and fall precautions in place. Call light within reach. Bed in lowest position, alarm on, locked. Will continue to monitor until report is given by bedside with oncoming nurse.
[2019-11-21 20:27] VITALS: BP_SYST 135
--- NOTE | 2019-11-21 21:15 | NUR ---
Patient awake alert on ROOM AIR 02 SAT 96 % sitting up - in bed using personal computer .
[2019-11-21] MEDS: ATORVASTATIN 20 MG TABLET PO SCH (22:30)
--- NOTE | 2019-11-22 00:02 | NUR ---
Patient wanting & using DIAPER / BRIEF SKIN RISKS , EXPLAINED patient awake also alert .
--- NOTE | 2019-11-22 00:06 | NUR ---
ASSIST ENCOURAGE position change off loading with pillows comfort measures implemented call stover with patient .
[2019-11-22 00:10] VITALS: BP_SYST 110
--- NOTE | 2019-11-22 04:32 | NUR ---
Hourly Rounding patient Resting call stover with patient , chest movement symmetrical no use of accessory muscle position change tolerated .
--- NOTE | 2019-11-22 07:25 | NUR ---
Opening Notes Patient is awake, alert and oriented x3. No resp distress noted. Breathing is even and unlabored. Remains on continuous oxygen @ 1 LPM via NC, saturating 96%. Repositioned with pillows. Patient denies any pain at this time. 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 SCDs in place. All needs met at this time. Safety and fall precautions in place. Call light within reach. Bed in lowest position, alarm on, locked.
[2019-11-22 08:00] VITALS: BP_SYST 139
--- NOTE | 2019-11-22 08:05 | NUR ---
Medication Pass Patient refused dulcolax suppository. Per patient, "I had a BM yesterday. I dont need it." Will continue to monitor.
[2019-11-22] MEDS: OXcarbazepine 150 MG TABLET(TRILEPTAL) PO SCH ×2 (08:20→20:10)
[2019-11-22] MEDS: FAMOTIDINE 20 MG TABLET PO SCH ×2 (08:20→20:10)
[2019-11-22] MEDS: BISACODYL 10 MG/SUPPOSITORY RC SCH (08:20)
[2019-11-22] MEDS: MUPIROCIN 2% TOPICAL OINTMENT 22 GM NS SCH ×2 (08:20→20:08)
[2019-11-22] MEDS: AMMONIUM LACTATE 12%, 400 ML LOTION TP SCH ×2 (08:20→20:10)
--- NOTE | 2019-11-22 10:00 | NUR ---
Notes Patient is laying in bed, watching on her iPad. No resp distress noted. Breathing is even and unlabored. Patient denies any pain at this time. Repositioned with pillows. All needs met. Safety and fall precautions in place. Call light within reach. Bed in lowest position, alarm on, locked. Will continue to monitor.
--- NOTE | 2019-11-22 12:30 | NUR ---
Notes Patient is sitting up in bed, eating lunch. Per patient, "I dont have much of an appetite right now." Patient ate 50% of lunch. No resp distress noted. Breathing is even and unlabored. Patient denies any pain at this time. Repositioned with pillows. All needs met. Safety and fall precautions in place. Call light within reach. Bed in lowest position, alarm on, locked. Will continue to monitor.
[2019-11-22 12:36] VITALS: BP_SYST 132
[2019-11-22] MEDS: 0.45% NACL 1,000 ML IV SCH (13:30)
--- NOTE | 2019-11-22 14:00 | NUR ---
Notes Patient is resting in bed. Repositioned with pillows. No resp distress at this time. Breathing is even and unlabored. All needs met at this time. Safety and fall precautions in place. Call light within reach. Bed in lowest position, alarm on, locked. Will continue to monitor.
--- NOTE | 2019-11-22 14:50 | NUR ---
DC Planing: Called dr. Perez for dc planning order. No order received today, per dr. Perez: the patient is complaining of having severe pain of both legs, has limited ambulation. He will reassess tomorrow for dcp. -- CM will f/u.
--- NOTE | 2019-11-22 15:08 | NUR ---
Discharge Planning: DCP faxed referral to [facility] (f [phone] p [phone]) DCP to follow up
--- NOTE | 2019-11-22 16:00 | NUR ---
Notes Patient is awake, alert and oriented x3. Patient is watching on her iPad. Denies any pain at this time. No resp distress. Patient remains on continuous oxygen @ 1 LPM, tolerated well. Breathing is even and unlabored. Repositioned with pillows. Safety and fall precautions in place. Call light within reach. Bed in lowest position, alarm on, locked. Will continue to monitor.
[2019-11-22 16:45] VITALS: BP_SYST 129
--- NOTE | 2019-11-22 16:49 | NUR ---
Paged Dr. Perez Paged Dr. Perez in regards to DC planning. Patient does not meet criteria for [facility] d/t no active IV antibiotics. Awaiting call back.
--- NOTE | 2019-11-22 18:25 | NUR ---
Closing Notes Patient is awake, alert and oriented x3, watching TV on her iPad. No resp distress noted. Breathing is even and unlabored at this time. Patient remains on continuous oxygen via NC @ 1 LPM, tolerated well. IV site on left FA, 22 gauge intact. 1/2 NS @ 75 ml/hr, infusing well. Denies and nausea, vomiting, diarrhea or dizziness at this time. Repositioned with pillows. Skin intact. All needs met at this time. Safety and fall precautions in place. Bed in lowest position, alarm on, 3 siderails up, locked. Will continue to monitor until bedside report is given to oncoming nurse.
--- NOTE | 2019-11-22 18:55 | NUR ---
Dr. Perez & Dr. Wesley Perez called back and nurse notified that patient did not meet criteria for [facility]. Dr. Olson notified nurse to contact Dr. Olson if a UA was needed prior to discharge. Paged Dr. Olson and gave new orders to DC patient back to [facility]. No IV ATB needed. Will endorse to next nurse to page Dr. Perez. Addendum: 11/22/19 at 1903 by Kerline Morel RN NO UA & IV ATB needed
[2019-11-22 19:40] VITALS: BP_SYST 116
--- NOTE | 2019-11-22 19:40 | NUR ---
INITIAL NOTES PATIENT IS STABLE AND LAYING IN BED. NO S/S OF RESPIRATORY DISTRESS NOTED. CALL LIGHT IN REACH. PATIENT SUCCESSFULLY DEMONSTRATES USAGE OF CALL LIGHT. PATIENT CURRENTLY HAS A DIAPER ON. PATIENT EDUCATED ABOUT DIAPER. PATIENT VERBALIZES UNDERSTANDING. PATIENT STATED TO LEAVE DIAPER ON. BED IS LOCKED, ALARMED, AND AT THE LOWEST POSITION. PLAN OF CARE IS DISCUSSED WITH PATIENT. FALL, SAFETY, ASPIRATION, RESPIRATORY, AND CONTACT PRECAUTIONS WILL BE IN PLACE THROUGHOUT THE SHIFT.
[2019-11-22] MEDS: ATORVASTATIN 20 MG TABLET PO SCH (20:10)
--- NOTE | 2019-11-22 21:40 | NUR ---
IV IS LEAKING AT THIS TIME. IV ON LEFT FA IS TAKEN OUT. TIP INTACT. PATIENT TOLERATED WELL. NO S/S OF RESPIRATORY DISTRESS NOTED. CALL LIGHT IN REACH. NEW IV PLACED ON RIGHT HAND 24 G. PATIENT TOLERATED WELL.
--- NOTE | 2019-11-22 23:40 | NUR ---
PATIENT WAS CLEANED AND CHANGED AT THIS TIME. PATIENT EDUCATED ON DIAPER. PATIENT VERBALIZES UNDERSTANDING. PATIENT REQUESTED DIAPER AT THIS TIME. PATIENT TOLERATED WELL. NO S/S OF RESPIRATORY DISTRESS NOTED. CALL LIGHT IN REACH. BED IS LOCKED, ALARMED, AND AT THE LOWEST POSITION.
[2019-11-23] VITALS: BP_SYST 124
--- NOTE | 2019-11-23 00:43 | NUR ---
PATIENT IS SLEEPING AND STABLE. NO S/S OF RESPIRATORY DISTRESS NOTED. CALL LIGHT IN REACH.
--- NOTE | 2019-11-23 02:38 | NUR ---
PATIENT IS STABLE AND SLEEPING IN BED. NO S/S OF RESPIRATORY DISTRESS NOTED. CALL LIGHT IN REACH.
[2019-11-23] MEDS: 0.45% NACL 1,000 ML IV SCH ×2 (03:21→15:26)
--- NOTE | 2019-11-23 04:10 | NUR ---
PATIENT IS STABLE AND SLEEPING IN BED. NO S/S OF RESPIRATORY DISTRESS NOTED. CALL LIGHT IN REACH.
--- NOTE | 2019-11-23 06:08 | NUR ---
PAGED I PAGED DR. SANTOS I SPOKE WITH BILL
--- NOTE | 2019-11-23 06:12 | NUR ---
CLOSING NOTES PATIENT IS STABLE AND LAYING IN BED. NO S/S OF RESPIRATORY DISTRESS NOTED. CALL LIGHT IN REACH. BED IS LOCKED, ALARMED, AND AT THE LOWEST POSITION. FALL, SAFETY, ASPIRATION, AND RESPIRATORY PRECAUTIONS HAS BEEN IN PLACE THROUGHOUT THE SHIFT. PAGED DR. SANTOS FOR DC ORDERS. NO REPLY BACK. WILL CONTINUE TO MONITOR AND WAIT FOR MD TO CALL BACK UNTIL REPORT IS ENDORSED TO AM NURSE BY BEDSIDE.
[2019-11-23 07:03] LABS: BASOPHILS % (AUTO) 0.9 % (0.0-2.0); EOSINOPHILS # (AUTO) 0.2 K/uL (0.0-0.4); EOSINOPHILS % (AUTO) 4.9 % (0.0-4.0); HEMATOCRIT 38.2 % (36-48); HEMOGLOBIN 12.4 g/dL (12.0-16.0); LYMPHOCYTES % (AUTO) 26.3 % (20.5-51.5); MEAN CORPUSCULAR HEMOGLOBIN 32 pg (27-31); MEAN CORPUSCULAR HGB CONC 32 % (32-36); MEAN CORPUSCULAR VOLUME 98 fL (79.0-98.0); MONOCYTES # (AUTO) 0.3 K/uL (0.0-1.0); MONOCYTES % (AUTO) 7.5 % (1.7-9.3); NEUTROPHILS # (AUTO) 2.4 K/uL (1.8-7.7); NEUTROPHILS % (AUTO) 60.4 % (40.0-70.0); PLATELET COUNT (AUTO) 157 K/uL (130-430); RED BLOOD CELL COUNT(AUTO) 3.91 MIL/uL (4.2-6.2); RED CELL DISTRIBUTION WIDTH 14.3 % (9.0-15.0); WHITE BLOOD COUNT (AUTO) 3.9 K/uL (4.8-10.8)
--- NOTE | 2019-11-23 07:30 | NUR ---
Opening Notes Patient is awake, alert and oriented x3. Patient remains on contact isolation. No resp distress noted. Breathing is even and unlabored. Patient did not have her nasal canula on, saturating at 96% on RA. Patient denies any pain at this time. IV noted on right hand, 24 gauge wrapped with arm board and gauze. 1/2 NS @ 75 ml/hr, infusing well. SCDs in place. Patient denies any nausea, vomiting or dizziness at this time. Repositioned with pillows. Safety and fall precautions in place. Call light within reach. Bed in lowest position, alarm on, locked. Will continue to monitor.
[2019-11-23 07:55] LABS: ALANINE AMINOTRANSFERASE 29 U/L (12-78); ALBUMIN 2.5 g/dL (3.4-4.8); ANION GAP 5 (5-15); ASPARTATE AMINOTRANSFERASE 21 U/L (10-37); CALCIUM 8.1 mg/dL (8.4-11.0); CHLORIDE 104 mmol/L (98-107); GLUCOSE 92 mg/dL (70-99); POTASSIUM 3.8 mmol/L (3.5-5.1); SODIUM SERUM 139 mmol/L (136-145); TOTAL BILIRUBIN 0.1 mg/dL (0.0-1.0); UREA NITROGEN, BLOOD 9 mg/dL (8-21)
[2019-11-23 08:00] VITALS: BP_SYST 145
--- NOTE | 2019-11-23 08:05 | NUR ---
Medication Pass Patient refused dulcolax suppository, states that she is having BM. Patient was educated on the r/b, refused x3. Returned medication back to [facility]. Will continue to monitor.
[2019-11-23] MEDS: AMMONIUM LACTATE 12%, 400 ML LOTION TP SCH (08:06)
[2019-11-23] MEDS: MUPIROCIN 2% TOPICAL OINTMENT 22 GM NS SCH (08:06)
[2019-11-23] MEDS: BISACODYL 10 MG/SUPPOSITORY RC SCH (08:07)
[2019-11-23] MEDS: FAMOTIDINE 20 MG TABLET PO SCH (08:07)
[2019-11-23] MEDS: OXcarbazepine 150 MG TABLET(TRILEPTAL) PO SCH (08:07)
--- NOTE | 2019-11-23 10:00 | NUR ---
Notes Patient is laying in bed resting and watching on her iPad. Repositioned with pillows. No resp distress noted. Breathing is even and unlabored. Patient denies any pain at this time. All needs met at this time. Safety and fall precautions in place. Call light within reach. Bed in lowest position, alarm on, locked.
--- NOTE | 2019-11-23 10:56 | NUR ---
Discharge Planning: DCP received [facility] (f [phone] p [phone]) patient did not meet criteria. DCP faxed pt referral to [facility] (f [phone] p [phone]) DCP to follow up. Addendum: 11/23/19 at 1216 by Chelsi Martinez DP Per [facility] at [facility] (f [phone] p [phone]) [facility] is in control of admission fo current of new admits. DCP to follow up. Addendum: 11/23/19 at 1606 by Chelsi Martinez DP DCP spoke to [facility] (f [phone] p [phone]) patient will go to [facility] and transportation arranged with [facility] ([phone]) 5:30pm P/U BLS. Patient packet taken to nurse station and nurse made aware.
[2019-11-23] MEDS: MECLIZINE HCL 25 MG TABLET (ANITVERT) PO PRN (11:23)
--- NOTE | 2019-11-23 11:23 | NUR ---
PAGED PAGED PEDRITO SIMS AT [phone] SPOKE WITH CHRIS.
--- NOTE | 2019-11-23 11:26 | NUR ---
Dizziness & Nausea Patient c/o dizziness and nausea. Nurse administered Meclizine 25 mg PO, tolerated well. Patient is also requesting a Scopolamine patch for dizziness. Patient is noted with an old patch on the back of her left ear. Per patient, "I was getting the patch for my vertigo at [facility]. Can I have a new one?" Paged Dr. Perez, requesting patch and nausea medicine. Awaiting callback. Will continue to monitor.
--- NOTE | 2019-11-23 12:10 | NUR ---
Notes Patient is awake, alert and oriented x3. No resp distress noted. Breathing is even and unlabored. Patient reports relief of dizziness but is still requesting the patch. Still waiting for Dr. Perez to call back. Patient is eating lunch at this time. Per patient, "I dont know why but I dont have an appetite here in the hospital." All needs met at this time. Repositioned with pillows. Safety and fall precautions in place. Call light within reach. Bed in lowest position, alarm on, locked.
[2019-11-23 12:58] VITALS: BP_SYST 128
--- NOTE | 2019-11-23 14:00 | NUR ---
Notes Patient is laying in bed, watching TV. No resp distress noted. Breathing is even and unlabored. Patient denies any pain at this time. All needs met at this time. Safety and fall precautions in place. Call light within reach. Bed in lowest position, locked. Will continue to monitor.
--- NOTE | 2019-11-23 16:00 | NUR ---
Notes Patient is laying in bed, watching TV. No resp distress noted. Breathing is even and unlabored. Patient denies any pain at this time. Repositioned with pillows. All needs met at this time. Safety and fall precautions in place. Call light within reach. Bed in lowest position, locked. Will continue to monitor.
[2019-11-23 16:57] VITALS: BP_SYST 128
[2019-11-23 17:17] VITALS: BP_SYST 129
--- NOTE | 2019-11-23 17:45 | NUR ---
D/C Patient Patient given medication reconciliation form and D/C instructions. Exit Care provided. Patient verbalized understanding. MD discussed with patient the results and treatment provided. Ambulatory with steady gait for discharge to [facility]. Patient in stable condition, ID band removed. IV catheter removed, intact and dressing applied, no active bleeding. Patient educated on pain management. All belongings sent with patient.
== END 2019-11-23 17:45 | DRG 202 ==
LOC: SED 17:20 → STU 19:57 → EEVIPCON 19:57 → STU 22:05
PROVIDERS: ADMIT Internal Medicine; ATTEND Internal Medicine
DX: J20.9 Acute bronchitis, unspecified (principal); N39.0 Urinary tract infection, site not specified; E44.0 Moderate protein-calorie malnutrition; R64 Cachexia; I31.9 Disease of pericardium, unspecified; I45.10 Unspecified right bundle-branch block; I10 Essential (primary) hypertension; J44.9 Chronic obstructive pulmonary disease, unspecified; E11.9 Type 2 diabetes mellitus without complications; F03.90 Unspecified dementia, unspecified severity, without behavioral disturbance, psychotic disturbance, mood disturbance, and anxiety; F32.9 Major depressive disorder, single episode, unspecified; F41.9 Anxiety disorder, unspecified; R07.89 Other chest pain; G89.29 Other chronic pain; M79.605 Pain in left leg; M79.604 Pain in right leg; G40.909 Epilepsy, unspecified, not intractable, without status epilepticus; Z20.828 Contact with and (suspected) exposure to other viral communicable diseases; M19.90 Unspecified osteoarthritis, unspecified site; Z87.440 Personal history of urinary (tract) infections; Z87.891 Personal history of nicotine dependence; Z90.49 Acquired absence of other specified parts of digestive tract; Z68.32 Body mass index [BMI] 32.0-32.9, adult; Z88.0 Allergy status to penicillin; Z79.899 Other long term (current) drug therapy
CPT/HCPCS: 36415; 71045; 80048; 80053; 80061; 81000-TC; 82550-TC; 82728; 83605; 83615-TC; 83880; 84443-TC; 84484; 85025; 85384-TC; 85610-TC; 85651-TC; 85730-TC; 86140; 87040-TC; 87081; 87086; 87186-TC; 93005; 93306; 94640; 94760; 99285; G0378; J1956; J2020; J8597; U0003-CS

== ENCOUNTER 2021-05-11 19:23 | Inpatient (IN) | payer OTHER, MEDICAID, SELFPAY ==
[~2021-05-11] VITALS: Ht 147.3 cm; Wt 81.4 kg
[~2021-05-11 19:23] MED LIST changes: -ACET-2165 PO; +ACET325T PO; +AMIN30LI2 PO; +ASCO500T20 PO; +CRAN450T9 PO; +D-ME120S20 PO; -DIPH25CA83 PO; -GLUC1VIA4 IM; -GLUCOSE PO; +HYDR-3917 PO; -HYDR-4272 PO; -INSU100V7 IJ; -MECL-110 PO; +MECL-160 PO; +METO-290 PO; -NA P133E41 RC; +OMEP20CA15 PO; -ONDA4TAB5 PO; +OXCA150T5 PO; -PROM6.256 PO; +VITD400 PO
[2021-05-11 19:28] VITALS: BP_SYST 138
--- NOTE | 2021-05-11 19:28 | NUR ---
Patient triaged and placed in ER HALLWAY PENDING BED PLACEMENT. VSS and patient appears in no acute distress at this time. Accompanied by BLS , awaiting available bed, and MD notified of need for MSE.
[2021-05-11 20:17] LABS: BASOPHILS % (AUTO) 0.5 % (0.0-2.0); EOSINOPHILS # (AUTO) 0.1 K/uL (0.0-0.4); EOSINOPHILS % (AUTO) 1.5 % (0.0-4.0); HEMATOCRIT 45.9 % (36-48); HEMOGLOBIN 15.3 g/dL (12.0-16.0); LYMPHOCYTES # (AUTO) 0.9 K/uL (1.0-5.5); LYMPHOCYTES % (AUTO) 19.8 % (20.5-51.5); MEAN CORPUSCULAR HEMOGLOBIN 32 pg (27-31); MEAN CORPUSCULAR HGB CONC 33 % (32-36); MEAN CORPUSCULAR VOLUME 96 fL (79.0-98.0); MONOCYTES # (AUTO) 0.4 K/uL (0.0-1.0); MONOCYTES % (AUTO) 8.5 % (1.7-9.3); NEUTROPHILS # (AUTO) 3.2 K/uL (1.8-7.7); NEUTROPHILS % (AUTO) 69.7 % (40.0-70.0); PLATELET COUNT (AUTO) 162 K/uL (130-430); RED BLOOD CELL COUNT(AUTO) 4.76 MIL/uL (4.2-6.2); RED CELL DISTRIBUTION WIDTH 13.9 % (9.0-15.0); WHITE BLOOD COUNT (AUTO) 4.6 K/uL (4.8-10.8)
[2021-05-11 20:36] LABS: ANION GAP 4 (5-15); CALCIUM 9.3 mg/dL (8.4-11.0); CHLORIDE 97 mmol/L (98-107); CREATININE 0.94 mg/dL (0.55-1.30); GLUCOSE 112 mg/dL (70-99); POTASSIUM 4.9 mmol/L (3.5-5.1); SODIUM SERUM 134 mmol/L (136-145); UREA NITROGEN, BLOOD 17 mg/dL (8-21)
[2021-05-11 20:38] LABS: INR 0.9 (0.8-1.2); PROTHROMBIN TIME 9.9 SECS (9.5-12.5)
[2021-05-11 20:41] LABS: ALANINE AMINOTRANSFERASE 29 U/L (12-78); ALBUMIN 3.7 g/dL (3.4-4.8); AMYLASE 32 U/L (0-100); ASPARTATE AMINOTRANSFERASE 21 U/L (10-37); LACTATE DEHYDROGENASE 125 U/L (81-234); LIPASE 30 U/L (73-393); TOTAL BILIRUBIN 0.4 mg/dL (0.0-1.0)
[2021-05-11 20:53] LABS: C-REACTIVE PROTEIN QUANT 0.7 mg/dL (0-0.5)
--- NOTE | 2021-05-11 21:42 | NUR ---
Patient to ER bed 05 to gown for evaluation. Side rails up. Report given to SPENCER MCGOWAN
--- NOTE | 2021-05-11 21:43 | NUR ---
PATIENT BROUGHT IN BLS FROM [facility] COMPLAINING OF ABDOMINAL PAIN AND DYSURIA X 3 DAYS.PATIENT IS AOX 3 NO ACUTE DISTRES NOTED. DENIES ANY PAIN AT THIS TIME.
--- NOTE | 2021-05-11 21:44 | NUR ---
# 16 FR In and Out catheter with use of sterile technique. Immediate return of 100ml CLOUDY YELLOW urine noted. Urine sample collected and sent to lab. Pt tolerated procedure WELL Patient unable to toilet self.
--- NOTE | 2021-05-11 21:49 | NUR ---
ER at bedside DISCUSSING RESULTS WITH PATIENT
[2021-05-11 21:54] LABS: BILIRUBIN,URINE NEGATIVE (NEGATIVE); BLOOD, URINE 2+ (NEGATIVE); CLARITY/URINE CLOUDY (CLEAR); COLOR,URINE YELLOW (YELLOW); GLUCOSE,URINE NEGATIVE (NEGATIVE); KETONES,URINE 2+ (NEGATIVE); LEUKOCYTE ESTERASE ,URINE 3+ (NEGATIVE); NITRITE, URINE POSITIVE (NEGATIVE); PROTEIN URINE 1+ (NEGATIVE); UROBILINOGEN,URINE 0.2 (0.2-1.0)
[2021-05-11] MEDS ORDERED: cefTRIAXone 1 GM in LIDOCAINE 1%, 20 ML MDV 2.1 ML IM ONE (22:00)
[2021-05-11 22:33] LABS: BACTERIA,URINE MANY /HPF (None Seen); WBC,URINE >100 /HPF (0-3)
[2021-05-11 22:34] LABS: MUCUS,URINE 2+ /LPF (None Seen)
--- NOTE | 2021-05-11 22:40 | NUR ---
Dr. Perez gave adm order via TO, Floor aware need Med Surg Bed
--- NOTE | 2021-05-11 22:42 | NUR ---
COVID AND MRSA SENT TO LAB
--- NOTE | 2021-05-11 22:44 | NUR ---
PATIENT ARRIVES WITH DOUG STATING FULL CODE
[2021-05-11] MEDS ORDERED: DIF100 PO (22:53)
[2021-05-11] MEDS ORDERED: DEXT50DI5 IV (22:53)
[2021-05-11] MEDS ORDERED: ONDA-8 TL (22:53)
[2021-05-11] MEDS ORDERED: NA P133E41 RC (22:53)
--- NOTE | 2021-05-11 22:54 | NUR ---
Medication reconciliation completed with information provided by [facility]. Any prior medication reconciliation on file was reviewed and corrected.
--- NOTE | 2021-05-11 22:54 | NUR ---
Neri allen in [facility] - 05/11/21 at 2254 by [email or web address] PATIENT ARRIVES WITH POLST OF FULL CODE.
--- NOTE | 2021-05-11 23:20 | NUR ---
# 22 gauge angiocath placed to LAC. Use of asceptic technique. Opsite placed over site. Blood return noted. Blood for lab drawn from site. Flushed with 10 cc of normal saline. No evidence of infiltration noted. Patient tolerated well.
--- NOTE | 2021-05-11 23:28 | NUR ---
Patient will be admitted to care of DR. SANTOS. Admitted to MED SURG unit. Will go to room 112A. Complete and up to date summary report printed. SBAR report to be given at bedside with opportunity for questions.
--- NOTE | 2021-05-12 00:15 | NUR ---
ADMISSION NOTE Received patient from ER via gurney. Patient admitted with diagnosis of recurring UTI. Patient is awake, alert, oriented X 3. Patient oriented to hospital room, call light, toileting, pain management and safety-teach back done. Patient informed that that their room number is 112A. Personal belongings checked and Belongings List documented. Call light within reach.
[2021-05-12 00:39] VITALS: BP_SYST 132
--- NOTE | 2021-05-12 05:12 | NUR ---
Spoke with Dr Perez regarding zosyn abx order when pt has PCN allergy, stated to talk with Dr Olson
--- NOTE | 2021-05-12 05:13 | NUR ---
Paged Brodie Luciano s/w Sheri
--- NOTE | 2021-05-12 05:17 | NUR ---
Nutrition Update Hiro Scale 15 noted. Pt admitted for Recurring UTI Diet: 2gm Na BMI: 30.8 kg/m2 RD to follow per nutrition care standards.
--- NOTE | 2021-05-12 05:48 | NUR ---
Second call for Brodie Luciano s/w Sheri
[2021-05-12] MEDS ORDERED: PIPERACILLIN/TAZO 3.375 GM in NS 50 ML IV SCH (06:00)
--- NOTE | 2021-05-12 06:22 | NUR ---
Still waiting call back from Dr Olson
--- NOTE | 2021-05-12 07:26 | NUR ---
Closing note Pt is resting in bed, eyes closed. No s/s of respiratory distress. Breathing even and unlabored. IV site is intact and patent saline lock. Fall and safety precautions in place with bed in lowest position, bed alarm on, and call light within reach. Seizure precautions in place. All needs met throughout shift.
[2021-05-12 08:00] VITALS: BP_SYST 121
--- NOTE | 2021-05-12 08:00 | NUR ---
Opening Notes: Pt is resting in bed, eyes closed. No s/s of respiratory distress. Breathing even and unlabored. IV site is intact and patent saline lock. Fall and safety precautions in place with bed in lowest position, bed alarm on, and call light within reach. Seizure precautions in place. Will continue to monitor.
--- NOTE | 2021-05-12 12:00 | NUR ---
RN Rounds: Pt is resting in bed. No s/s of respiratory distress. Breathing even and unlabored. IV site is intact and patent saline lock. Fall and safety precautions in place with bed in lowest position, bed alarm on, and call light within reach. Seizure precautions in place.
[2021-05-12 12:24] VITALS: BP_SYST 119
[2021-05-12] MEDS ORDERED: HYDROcodone/ACETAMIN 5-325 MG TAB (NORCO/ VICODIN) PO PRN (13:45)
[2021-05-12] MEDS ORDERED: DEXTROSE 50% JECT 50 ML DISP.SYRIN IV PRN (13:45)
[2021-05-12] MEDS ORDERED: IPRATROPIUM/ALBUTEROL SULFATE 3 ML AMPUL.NEB (DUONEB) INH PRN (13:45)
[2021-05-12] MEDS ORDERED: ONDANSETRON 4 MG ODT TAB TL PRN (13:45)
[2021-05-12] MEDS ORDERED: MILK OF MAGNESIA 30 ML UDC PO PRN (13:45)
[2021-05-12] MEDS ORDERED: BISACODYL 10 MG/SUPPOSITORY RC PRN (13:45)
[2021-05-12] MEDS ORDERED: NALOXONE HCL 0.4 MG/ML AMP (NARCAN) IVP PRN (13:45)
[2021-05-12] MEDS ORDERED: SODIUM PHOSPHATE,MONO-DIBASIC 133 ML ENEMA RC SCH (13:45)
[2021-05-12] MEDS ORDERED: ACETAMINOPHEN 325 MG TABLET PO PRN ×2 (13:45)
[2021-05-12] MEDS ORDERED: FLUCONAZOLE 100 MG TABLET (DIFLUCAN) PO ONE (15:00)
[2021-05-12] MEDS ORDERED: MECLIZINE HCL 25 MG TABLET (ANITVERT) PO ONE (15:00)
--- NOTE | 2021-05-12 15:30 | NUR ---
CONSULTATION PAGED REASON FOR CONSULTATION:UTI WAS CONSULT CALLED?Y PERSON WHO WAS NOTIFIED:GAYLA CONSULTING PHYSICIAN:DEISI ZAMBRANO CREDIT RISK ANALYTICS MANAGER SPECIALTY:UROLOGY CREDIT RISK ANALYTICS MANAGER PHONE NUMBER:[phone] REQUESTING PHYSICIAN:SCOTT WAYNE NP
[2021-05-12] MEDS ORDERED: OXcarbazepine 150 MG TABLET(TRILEPTAL) PO ONE (15:45)
[2021-05-12 16:23] VITALS: BP_SYST 123
[2021-05-12] MEDS: PANTOPRAZOLE SODIUM 40 MG TAB PO SCH (16:44)
[2021-05-12] MEDS: methylPREDNISolone SOD SUCC 40 MG/ML VIAL IVP SCH ×2 (16:45→23:40)
[2021-05-12] MEDS: LEVOFLOXACIN 250 MG/D5W 50 ML IV SCH (16:45)
[2021-05-12] MEDS ORDERED: OMEPRAZOLE Non-Formulary 20 MG CAPSULE.DR PO SCH (17:00)
--- NOTE | 2021-05-12 18:24 | NUR ---
Closing Notes: Pt is resting in bed. No s/s of respiratory distress. Breathing even and unlabored. IV site is intact and running ordered fluids. Fall and safety precautions in place with bed in lowest position, bed alarm on, and call light within reach. Seizure precautions in place. Will endorse to night nurse.
--- NOTE | 2021-05-12 19:00 | NUR ---
OPENING NOTES PATIENT RESTING, NO SIGNS OF ACUTE RESPIRATORY DISTRESS NOTED. CALL LIGHT WITHIN REACH, PATIENT DEMONSTRATES PROPER USAGE OF CALL LIGHT. SEIZURE PADS IN PLACE. BED AT LOWEST POSITION, BED LOCKED, BED ALARM ON. FALL, RESPIRATORY, ASPIRATION, ISOLATION, SEIZURE AND SAFETY PRECAUTIONS IN PLACE. DISCUSSED PLAN OF CARE WITH PATIENT. WILL CONTINUE TO MONITOR.
[2021-05-12 20:00] VITALS: BP_SYST 124
[2021-05-12] MEDS: MECLIZINE HCL 25 MG TABLET (ANITVERT) PO SCH (20:54)
[2021-05-12] MEDS: ATORVASTATIN 20 MG TABLET PO SCH (20:54)
[2021-05-12] MEDS: FAMOTIDINE 20 MG TABLET PO SCH (20:55)
--- NOTE | 2021-05-13 00:10 | NUR ---
PATIENT RESTING, NO SIGNS OF RESPIRATORY DISTRESS NOTED. LIGHTS TURNED OFF. CALL LIGHT WITHIN REACH, BED ALARM ON. PRECAUTIONS IN PLACE. WILL CONTINUE TO MONITOR.
--- NOTE | 2021-05-13 01:40 | NUR ---
CONSULTATION CALLED FOR DR. MAURO FOR CONSULT OF RECURRENT VAGINITIS ORDER BY DR. SANTOS SPOKE WITH VALENCIA
[2021-05-13 01:53] VITALS: BP_SYST 126
[2021-05-13] MEDS: methylPREDNISolone SOD SUCC 40 MG/ML VIAL IVP SCH ×2 (06:01→22:39)
--- NOTE | 2021-05-13 06:18 | NUR ---
CLOSING NOTES PATIENT RESTING, NO SIGNS OF ACUTE RESPIRATORY DISTRESS NOTED. CALL LIGHT WITHIN REACH. SEIZURE PADS IN PLACE. BED AT LOWEST POSITION, BED LOCKED, BED ALARM ON. FALL, RESPIRATORY, ASPIRATION, ISOLATION, SEIZURE AND SAFETY PRECAUTIONS IN PLACE THROUGHOUT SHIFT. ALL NEEDS MET THROUGHOUT SHIFT. WILL ENDORSE CARE TO ONCOMING SHIFT.
[2021-05-13 06:57] LABS: BASOPHILS % (AUTO) 0.2 % (0.0-2.0); EOSINOPHILS % (AUTO) 0.1 % (0.0-4.0); HEMATOCRIT 45.8 % (36-48); HEMOGLOBIN 15.3 g/dL (12.0-16.0); LYMPHOCYTES # (AUTO) 0.4 K/uL (1.0-5.5); MEAN CORPUSCULAR HEMOGLOBIN 32 pg (27-31); MEAN CORPUSCULAR HGB CONC 33 % (32-36); MEAN CORPUSCULAR VOLUME 97 fL (79.0-98.0); MONOCYTES % (AUTO) 1.2 % (1.7-9.3); NEUTROPHILS # (AUTO) 3.7 K/uL (1.8-7.7); NEUTROPHILS % (AUTO) 88.5 % (40.0-70.0); PLATELET COUNT (AUTO) 158 K/uL (130-430); RED BLOOD CELL COUNT(AUTO) 4.72 MIL/uL (4.2-6.2); RED CELL DISTRIBUTION WIDTH 13.7 % (9.0-15.0); WHITE BLOOD COUNT (AUTO) 4.1 K/uL (4.8-10.8)
[2021-05-13 08:00] VITALS: BP_SYST 128
[2021-05-13 08:00] LABS: ANION GAP 8 (5-15); CALCIUM 9.3 mg/dL (8.4-11.0); CHLORIDE 99 mmol/L (98-107); CREATININE 0.81 mg/dL (0.55-1.30); GLUCOSE 134 mg/dL (70-99); POTASSIUM 4.5 mmol/L (3.5-5.1); SODIUM SERUM 136 mmol/L (136-145); UREA NITROGEN, BLOOD 20 mg/dL (8-21)
--- NOTE | 2021-05-13 08:00 | NUR ---
Opening notes: Pt is resting in bed. No s/s of respiratory distress. Breathing even and unlabored. IV site is intact and running ordered fluids. Fall, seizure and safety precautions in place with bed in lowest position, bed alarm on, and call light within reach. Breakfast at bedside. Will continue to monitor.
[2021-05-13] MEDS: MECLIZINE HCL 25 MG TABLET (ANITVERT) PO SCH ×2 (09:03→22:11)
[2021-05-13] MEDS: ASCORBIC ACID 500 MG TABLET PO SCH (09:03)
[2021-05-13] MEDS: FLUCONAZOLE 100 MG TABLET (DIFLUCAN) PO SCH (09:03)
[2021-05-13] MEDS: FAMOTIDINE 20 MG TABLET PO SCH ×2 (09:03→22:11)
[2021-05-13] MEDS: CHOLECALCIFEROL (VITAMIN D-3) 400 UNIT TABLET PO SCH (09:04)
[2021-05-13] MEDS: OXcarbazepine 150 MG TABLET(TRILEPTAL) PO SCH ×2 (09:04→22:11)
[2021-05-13 12:00] VITALS: BP_SYST 132
--- NOTE | 2021-05-13 12:02 | NUR ---
RN rounds: Pt is resting in bed. No s/s of respiratory distress. Breathing even and unlabored. IV site is intact and running ordered fluids. Fall, seizure and safety precautions in place with bed in lowest position, bed alarm on, and call light within reach. Lunch at bedside. Will continue to monitor.
--- NOTE | 2021-05-13 12:51 | NUR ---
FURNACE ROOM SUPERVISOR rounds: Elza FURNACE ROOM SUPERVISOR went to see pt, will review home medications, and DVT prophylaxis.
[2021-05-13] MEDS ORDERED: PEG15DRO5 EACH EYE (13:09)
[2021-05-13] MEDS: PANTOPRAZOLE SODIUM 40 MG TAB PO SCH (15:28)
[2021-05-13] MEDS: LEVOFLOXACIN 250 MG/D5W 50 ML IV SCH (15:28)
[2021-05-13] MEDS ORDERED: HYPROMELLOSE EACH EYE PRN (15:45)
[2021-05-13] MEDS ORDERED: DEXTRAN EACH EYE PRN (15:45)
[2021-05-13 16:46] VITALS: BP_SYST 130
--- NOTE | 2021-05-13 17:20 | NUR ---
BLADDER SCAN: Scanned bladder, had 77 mL residual.
--- NOTE | 2021-05-13 18:35 | NUR ---
CLOSING NOTES PATIENT RESTING, NO SIGNS OF ACUTE RESPIRATORY DISTRESS NOTED. CALL LIGHT WITHIN REACH. SEIZURE PADS IN PLACE. BED AT LOWEST POSITION, BED LOCKED, BED ALARM ON. FALL, CONTACT ISOLATION, SEIZURE AND SAFETY PRECAUTIONS IN PLACE THROUGHOUT SHIFT. ALL NEEDS MET THROUGHOUT SHIFT. WILL ENDORSE CARE TO ROTARY PUMP OPERATOR.
--- NOTE | 2021-05-13 19:30 | NUR ---
Opening note Received report from day shift. Pt is awake resting in bed. No s/s of respiratory distress. Breathing even and unlabored. IV site is intact and patent saline lock. Fall and safety precautions in place with bed in lowest position, bed alarm on, and call light within reach. Seizure precautions in place
[2021-05-13 20:00] VITALS: BP_SYST 123
[2021-05-13] MEDS: ATORVASTATIN 20 MG TABLET PO SCH (22:11)
--- NOTE | 2021-05-14 00:15 | NUR ---
Rounds Pt awake watching TV. No s/s of acute distress. Fall and safety checks in place
[2021-05-14 01:49] VITALS: BP_SYST 130
[2021-05-14 06:48] LABS: BASOPHILS % (AUTO) 0.1 % (0.0-2.0); HEMATOCRIT 44.5 % (36-48); HEMOGLOBIN 14.9 g/dL (12.0-16.0); LYMPHOCYTES # (AUTO) 0.5 K/uL (1.0-5.5); LYMPHOCYTES % (AUTO) 5.4 % (20.5-51.5); MEAN CORPUSCULAR HEMOGLOBIN 32 pg (27-31); MEAN CORPUSCULAR HGB CONC 34 % (32-36); MEAN CORPUSCULAR VOLUME 96 fL (79.0-98.0); MONOCYTES # (AUTO) 0.2 K/uL (0.0-1.0); MONOCYTES % (AUTO) 2.6 % (1.7-9.3); NEUTROPHILS # (AUTO) 8.5 K/uL (1.8-7.7); NEUTROPHILS % (AUTO) 91.9 % (40.0-70.0); PLATELET COUNT (AUTO) 165 K/uL (130-430); RED BLOOD CELL COUNT(AUTO) 4.62 MIL/uL (4.2-6.2); RED CELL DISTRIBUTION WIDTH 13.8 % (9.0-15.0); WHITE BLOOD COUNT (AUTO) 9.3 K/uL (4.8-10.8)
--- NOTE | 2021-05-14 06:57 | NUR ---
Closing note Pt is awake resting in bed. No s/s of respiratory distress. Breathing even and unlabored. IV site is intact and patent saline lock. Fall and safety precautions in place with bed in lowest position, bed alarm on, and call light within reach. Seizure precautions in place. All needs met throughout shift
[2021-05-14 07:17] LABS: ANION GAP 7 (5-15); CALCIUM 9.6 mg/dL (8.4-11.0); CHLORIDE 101 mmol/L (98-107); CREATININE 0.95 mg/dL (0.55-1.30); GLUCOSE 154 mg/dL (70-99); POTASSIUM 4.8 mmol/L (3.5-5.1); SODIUM SERUM 139 mmol/L (136-145); UREA NITROGEN, BLOOD 25 mg/dL (8-21)
[2021-05-14 08:00] VITALS: BP_SYST 137
--- NOTE | 2021-05-14 08:15 | NUR ---
Opening Notes Patient is awake, alert and oriented x3. Pt remains on contact isolation. Noted with intermittent wheezing on excertion. Pt remains on RA at this time. IV site on left AC 22 gauge intact, saline lock. Pt is sensitive to flushing saline. Pt is incontinent, yellow and clear urine noted. Pt remains on bedrest at this time. Safety, fall and seizure precautions in place. Bed in lowest position, alarm on, locked. Will continue to monitor.
[2021-05-14] MEDS: methylPREDNISolone SOD SUCC 40 MG/ML VIAL IVP SCH ×2 (09:00→20:53)
[2021-05-14] MEDS: ENOXAPARIN SODIUM 40 MG/0.4 ML SYRINGE SUBCUT SCH (09:00)
[2021-05-14] MEDS: ASCORBIC ACID 500 MG TABLET PO SCH (09:01)
[2021-05-14] MEDS: MECLIZINE HCL 25 MG TABLET (ANITVERT) PO SCH ×2 (09:01→20:52)
[2021-05-14] MEDS: CHOLECALCIFEROL (VITAMIN D-3) 400 UNIT TABLET PO SCH (09:01)
[2021-05-14] MEDS: FAMOTIDINE 20 MG TABLET PO SCH ×2 (09:01→20:52)
[2021-05-14] MEDS: FLUCONAZOLE 100 MG TABLET (DIFLUCAN) PO SCH (09:01)
[2021-05-14] MEDS: OXcarbazepine 150 MG TABLET(TRILEPTAL) PO SCH ×2 (09:01→20:52)
--- NOTE | 2021-05-14 10:00 | NUR ---
Notes Patient is sleeping at this time. No resp distress noted. Breathing is even and unlabored. No signs of acute distress. Will continue to monitor.
--- NOTE | 2021-05-14 12:00 | NUR ---
Notes Pt is awake, alert and oriented x3, lethargic. Pericare provided and repositioned in bed. No acute distress. Will continue to monitor.
[2021-05-14 12:43] VITALS: BP_SYST 132
[2021-05-14] MEDS ORDERED: METOCLOPRAMIDE HCL 10 MG/2 ML VIAL IVP PRN (13:00)
[2021-05-14] MEDS ORDERED: METOCLOPRAMIDE HCL 10 MG/2 ML VIAL ONE (13:03)
--- NOTE | 2021-05-14 13:14 | NUR ---
Vomitting x1/Reglan Patient is noted with 2 episode of vomitting, 25 cc. Administered Reglan 4 mg IVP, tolerated well. Pt was cleaned up and provided at new gown. Will continue to monitor.
--- NOTE | 2021-05-14 14:00 | NUR ---
Notes Patient is asleep at this time. No resp distress. No acute distress. no signs of pain. Will continue to montior.
[2021-05-14] MEDS: PANTOPRAZOLE SODIUM 40 MG TAB PO SCH (14:40)
[2021-05-14] MEDS: LEVOFLOXACIN 250 MG/D5W 50 ML IV SCH (14:41)
[2021-05-14 16:00] VITALS: BP_SYST 135
--- NOTE | 2021-05-14 16:00 | NUR ---
Notes Patient is lethargic at this time. No resp distress noted. Breathing is even and unlabored. Pt denies any pain. Will continue to monitor.
--- NOTE | 2021-05-14 18:55 | NUR ---
Closing Notes Patient is awake, alert and oriented x3, lethargic. Pt remains on contact isolation. Noted with intermittent wheezing on excertion. Pt remains on RA at this time. IV site on left AC 22 gauge intact, saline lock. Pt remains on bedrest at this time. Safety, fall and seizure precautions in place. Bed in lowest position, alarm on, locked. Will continue to monitor.
--- NOTE | 2021-05-14 19:40 | NUR ---
ROUNDS PATIENT RESTING COMFORTABLY IN BED, NOT IN DISTRESS, VITALS STABLE. DENIES PAIN AT THIS TIME. ASSESSMENT DONE AND DOCUMENTED. SEE FLOWSHEET. NEEDS ATTENDED TO. SAFETY AND FALL MEASURES IN PLACED. CALL LIGHT PLACED WITHIN REACH.
[2021-05-14 20:00] VITALS: BP_SYST 122
[2021-05-14] MEDS: ATORVASTATIN 20 MG TABLET PO SCH (20:52)
--- NOTE | 2021-05-14 21:14 | NUR ---
MEDICATION DUE MEDICATIONS GIVEN ORDERED, TOLERATED WELL. WILL CONTINUE TO MONITOR.
[2021-05-15 00:29] VITALS: BP_SYST 102
[2021-05-15 06:40] LABS: BASOPHILS % (AUTO) 0.1 % (0.0-2.0); HEMATOCRIT 44.5 % (36-48); HEMOGLOBIN 14.5 g/dL (12.0-16.0); LYMPHOCYTES # (AUTO) 0.5 K/uL (1.0-5.5); LYMPHOCYTES % (AUTO) 7.4 % (20.5-51.5); MEAN CORPUSCULAR HEMOGLOBIN 32 pg (27-31); MEAN CORPUSCULAR HGB CONC 33 % (32-36); MEAN CORPUSCULAR VOLUME 98 fL (79.0-98.0); MONOCYTES # (AUTO) 0.2 K/uL (0.0-1.0); MONOCYTES % (AUTO) 2.4 % (1.7-9.3); NEUTROPHILS # (AUTO) 6.1 K/uL (1.8-7.7); NEUTROPHILS % (AUTO) 90.1 % (40.0-70.0); PLATELET COUNT (AUTO) 164 K/uL (130-430); RED BLOOD CELL COUNT(AUTO) 4.55 MIL/uL (4.2-6.2); RED CELL DISTRIBUTION WIDTH 13.9 % (9.0-15.0); WHITE BLOOD COUNT (AUTO) 6.7 K/uL (4.8-10.8)
[2021-05-15 06:54] LABS: ANION GAP 8 (5-15); CALCIUM 9.4 mg/dL (8.4-11.0); CHLORIDE 101 mmol/L (98-107); CREATININE 0.79 mg/dL (0.55-1.30); GLUCOSE 146 mg/dL (70-99); POTASSIUM 4.7 mmol/L (3.5-5.1); SODIUM SERUM 139 mmol/L (136-145); UREA NITROGEN, BLOOD 27 mg/dL (8-21)
--- NOTE | 2021-05-15 06:55 | NUR ---
BLADDER SCAN BLADDER SCAN DONE, URINE RESIDUAL 116. NO COMPLAINTS AT THIS TIME.
--- NOTE | 2021-05-15 06:58 | NUR ---
CLOSING NOTES PATIENT AWAKE, VITALS STABLE, DENIES PAIN AT THIS TIME. ALL NEEDS ATTENDED TO. CALL LIGHT PLACED WITHIN REACH.
[2021-05-15 07:54] VITALS: BP_SYST 116
[2021-05-15] MEDS: OXcarbazepine 150 MG TABLET(TRILEPTAL) PO SCH ×2 (09:05→21:26)
[2021-05-15] MEDS: MECLIZINE HCL 25 MG TABLET (ANITVERT) PO SCH ×2 (09:05→21:26)
[2021-05-15] MEDS: FLUCONAZOLE 100 MG TABLET (DIFLUCAN) PO SCH (09:05)
[2021-05-15] MEDS: FAMOTIDINE 20 MG TABLET PO SCH ×2 (09:05→21:26)
[2021-05-15] MEDS: CHOLECALCIFEROL (VITAMIN D-3) 400 UNIT TABLET PO SCH (09:05)
[2021-05-15] MEDS: ASCORBIC ACID 500 MG TABLET PO SCH (09:05)
[2021-05-15] MEDS: methylPREDNISolone SOD SUCC 40 MG/ML VIAL IVP SCH (09:05)
[2021-05-15] MEDS: SCOPOLAMINE HYDROBROMIDE 1 MG PATCH .72 H (TRANSDERM-SCOP) TD SCH (09:11)
[2021-05-15] MEDS: ENOXAPARIN SODIUM 40 MG/0.4 ML SYRINGE SUBCUT SCH (09:11)
[2021-05-15 12:41] VITALS: BP_SYST 124
[2021-05-15] MEDS: PANTOPRAZOLE SODIUM 40 MG TAB PO SCH (14:32)
[2021-05-15] MEDS: LEVOFLOXACIN 250 MG/D5W 50 ML IV SCH (14:32)
--- NOTE | 2021-05-15 15:12 | NUR ---
CM: Discharge barriers:Per SPENCER Cody the pt will be on NPO for abd US, Midline placement , SHANK SKINNER consultation. >> Per Carlie DRIER ATTENDANT, DC planning to snf once ok with all consultants and once pain is controlled.
--- NOTE | 2021-05-15 15:15 | NUR ---
Note PICC RN at bedside to start midline placement.
--- NOTE | 2021-05-15 15:55 | NUR ---
Note Midline placed and patent at this time. PICC RN Hiram stated midline can be used at this time. ALYSSA midline.
[2021-05-15 16:14] VITALS: BP_SYST 125
[2021-05-15 16:30] VITALS: BP_SYST 121
--- NOTE | 2021-05-15 18:35 | NUR ---
Note Pt has been checked on q1' and PRN all shift for needs and care. Pt has been next to nurses' station for close observation for needs and care. Pt's bed in low position and bed alarm on all shift. Pt's ALYSSA midline intact and patent. No needs noted all shift. Pt sat up in bed for meals. Call light within reach.
[2021-05-15 20:00] VITALS: BP_SYST 126
[2021-05-15] MEDS: ATORVASTATIN 20 MG TABLET PO SCH (21:26)
--- NOTE | 2021-05-15 22:00 | NUR ---
ROUNDING NOTES Patient resting in bed - no s/s pain or distress noted. Respirations even and unlabored - head of bed elevated. IV site patent - no s/s redness, infection, or infiltration. Bed locked and in lowest position. Call light within reach. Bed alarm on. Seizure precautions in place.
[2021-05-16 00:37] VITALS: BP_SYST 106
[2021-05-16 06:58] LABS: BASOPHILS % (AUTO) 0.1 % (0.0-2.0); EOSINOPHILS % (AUTO) 0.2 % (0.0-4.0); HEMATOCRIT 43.1 % (36-48); HEMOGLOBIN 14.3 g/dL (12.0-16.0); LYMPHOCYTES # (AUTO) 1.1 K/uL (1.0-5.5); LYMPHOCYTES % (AUTO) 18.7 % (20.5-51.5); MEAN CORPUSCULAR HEMOGLOBIN 32 pg (27-31); MEAN CORPUSCULAR HGB CONC 33 % (32-36); MEAN CORPUSCULAR VOLUME 97 fL (79.0-98.0); MONOCYTES # (AUTO) 0.6 K/uL (0.0-1.0); MONOCYTES % (AUTO) 9.5 % (1.7-9.3); NEUTROPHILS # (AUTO) 4.3 K/uL (1.8-7.7); NEUTROPHILS % (AUTO) 71.5 % (40.0-70.0); PLATELET COUNT (AUTO) 155 K/uL (130-430); RED BLOOD CELL COUNT(AUTO) 4.44 MIL/uL (4.2-6.2); RED CELL DISTRIBUTION WIDTH 13.8 % (9.0-15.0)
[2021-05-16 07:57] VITALS: BP_SYST 91
[2021-05-16 07:57] LABS: ANION GAP 7 (5-15); CALCIUM 9.4 mg/dL (8.4-11.0); CHLORIDE 101 mmol/L (98-107); CREATININE 0.87 mg/dL (0.55-1.30); GLUCOSE 101 mg/dL (70-99); POTASSIUM 4.2 mmol/L (3.5-5.1); SODIUM SERUM 139 mmol/L (136-145); UREA NITROGEN, BLOOD 29 mg/dL (8-21)
[2021-05-16] MEDS: ENOXAPARIN SODIUM 40 MG/0.4 ML SYRINGE SUBCUT SCH (08:29)
--- NOTE | 2021-05-16 10:06 | NUR ---
Discharge Planning: DCP faxed pt referral to [facility] (F [phone] P [phone]) DCP to follow up.
[2021-05-16] MEDS: MECLIZINE HCL 25 MG TABLET (ANITVERT) PO SCH ×2 (11:37→21:39)
[2021-05-16] MEDS: FLUCONAZOLE 100 MG TABLET (DIFLUCAN) PO SCH (11:37)
[2021-05-16] MEDS: CHOLECALCIFEROL (VITAMIN D-3) 400 UNIT TABLET PO SCH (11:38)
[2021-05-16] MEDS: FAMOTIDINE 20 MG TABLET PO SCH ×2 (11:38→21:40)
[2021-05-16] MEDS: predniSONE 20 MG TABLET PO SCH (11:38)
[2021-05-16] MEDS: OXcarbazepine 150 MG TABLET(TRILEPTAL) PO SCH ×2 (11:38→21:39)
[2021-05-16] MEDS: ASCORBIC ACID 500 MG TABLET PO SCH (11:38)
[2021-05-16 12:17] VITALS: BP_SYST 117
[2021-05-16] MEDS ORDERED: LEVO750T45 PO (12:32)
[2021-05-16] MEDS: PANTOPRAZOLE SODIUM 40 MG TAB PO SCH (15:04)
[2021-05-16] MEDS: LEVOFLOXACIN 250 MG/D5W 50 ML IV SCH (15:04)
[2021-05-16 15:45] VITALS: BP_SYST 112
--- NOTE | 2021-05-16 18:20 | NUR ---
Note Pt had her US of abdomen this am. Pt had lunch - tolerated lunch well. Poor appetite. Pt was checked on q1' and PRN all shift for needs and care. Pt's bed in low position and bed alarm on all shift. Pt next to nurses' station for close observation. Call light within reach. Pt sitting up in bed for her meals. No needs noted at this time.
[2021-05-16 20:00] VITALS: BP_SYST 132
[2021-05-16] MEDS: PEG 400/HYPROMELLOSE/GLYCERIN 15 ML DROPS EACH EYE PRN (21:40)
[2021-05-16] MEDS: ATORVASTATIN 20 MG TABLET PO SCH (21:40)
[2021-05-17 00:51] VITALS: BP_SYST 103
--- NOTE | 2021-05-17 07:30 | NUR ---
Morning Rounds: Patient sleeping during rounds. Call light with in reach. Bed locked at lowest position. No distress.
--- NOTE | 2021-05-17 09:00 | NUR ---
Breakfast: Set up breakfast for the patient. Dr Lyles in the room.
[2021-05-17 09:13] VITALS: BP_SYST 120
[2021-05-17] MEDS: MECLIZINE HCL 25 MG TABLET (ANITVERT) PO SCH ×2 (09:21→20:14)
[2021-05-17] MEDS: FAMOTIDINE 20 MG TABLET PO SCH ×2 (09:21→20:14)
[2021-05-17] MEDS: ASCORBIC ACID 500 MG TABLET PO SCH (09:21)
[2021-05-17] MEDS: FLUCONAZOLE 100 MG TABLET (DIFLUCAN) PO SCH (09:21)
[2021-05-17] MEDS: predniSONE 20 MG TABLET PO SCH (09:21)
[2021-05-17] MEDS: CHOLECALCIFEROL (VITAMIN D-3) 400 UNIT TABLET PO SCH (09:21)
[2021-05-17] MEDS: ENOXAPARIN SODIUM 40 MG/0.4 ML SYRINGE SUBCUT SCH (09:22)
[2021-05-17] MEDS: OXcarbazepine 150 MG TABLET(TRILEPTAL) PO SCH ×2 (09:22→20:14)
[2021-05-17 11:40] VITALS: BP_SYST 114
[2021-05-17] MEDS: PANTOPRAZOLE SODIUM 40 MG TAB PO SCH (14:43)
[2021-05-17] MEDS: LEVOFLOXACIN 250 MG/D5W 50 ML IV SCH (14:44)
[2021-05-17] MEDS: PEG 400/HYPROMELLOSE/GLYCERIN 15 ML DROPS EACH EYE PRN ×2 (15:01→20:25)
[2021-05-17 15:31] VITALS: BP_SYST 116
--- NOTE | 2021-05-17 18:19 | NUR ---
Evening Rounds: Patient still having a dinner. Midline dressing clean and dry. No distress. Call light with in reach. Safety measures rendered.
--- NOTE | 2021-05-17 19:40 | NUR ---
ROUNDS PATIENT AWAKE, WATCHING TV, VITALS STABLE. ASSESSMENT DONE AND DOCUMENTED. SEE FLOWSHEET. NEEDS ATTENDED TO. SAFETY MEASURES IN PLACED. CALL LIGHT PLACED WITHIN REACH.
[2021-05-17] MEDS: ATORVASTATIN 20 MG TABLET PO SCH (20:14)
[2021-05-18 01:13] VITALS: BP_SYST 123
--- NOTE | 2021-05-18 02:14 | NUR ---
ROUNDS PATIENT ASLEEP, RESPIRATIONS EVEN AND UNLABORED, CALL LIGHT PLACED WITHIN REACH.
--- NOTE | 2021-05-18 06:50 | NUR ---
CLOSING NOTES PATIENT STILL ASLEEP, RESPIRATIONS EVEN AND UNLABORED, NO SIGNS OF ANY PAIN NOTED. ALL NEEDS ATTENDED TO. CALL LIGHT PLACED WITHIN REACH.
--- NOTE | 2021-05-18 07:40 | NUR ---
OPENING NOTE Received shift report from film processing shift supervisor RN. Patient currently resting in bed and respirations remain even and non-labored on room air. Midline is patent and saline-locked. No complaints of pain nor distress. Bed locked in lowest position and call light is within reach. Will continue to monitor.
[2021-05-18 08:00] VITALS: BP_SYST 126
[2021-05-18] MEDS: FAMOTIDINE 20 MG TABLET PO SCH ×2 (09:59→20:19)
[2021-05-18] MEDS: FLUCONAZOLE 100 MG TABLET (DIFLUCAN) PO SCH (09:59)
[2021-05-18] MEDS: CHOLECALCIFEROL (VITAMIN D-3) 400 UNIT TABLET PO SCH (09:59)
[2021-05-18] MEDS: ASCORBIC ACID 500 MG TABLET PO SCH (09:59)
[2021-05-18] MEDS: MECLIZINE HCL 25 MG TABLET (ANITVERT) PO SCH ×2 (09:59→20:18)
[2021-05-18] MEDS: OXcarbazepine 150 MG TABLET(TRILEPTAL) PO SCH ×2 (09:59→20:19)
[2021-05-18] MEDS: predniSONE 20 MG TABLET PO SCH (09:59)
[2021-05-18] MEDS: ENOXAPARIN SODIUM 40 MG/0.4 ML SYRINGE SUBCUT SCH (10:00)
[2021-05-18] MEDS: SCOPOLAMINE HYDROBROMIDE 1 MG PATCH .72 H (TRANSDERM-SCOP) TD SCH (10:01)
[2021-05-18 11:29] VITALS: BP_SYST 103
[2021-05-18] MEDS: PANTOPRAZOLE SODIUM 40 MG TAB PO SCH (15:22)
[2021-05-18] MEDS: LEVOFLOXACIN 250 MG/D5W 50 ML IV SCH (15:22)
[2021-05-18 15:54] VITALS: BP_SYST 110
--- NOTE | 2021-05-18 18:51 | NUR ---
CLOSING NOTE Patient currently resting in bed and respirations remain even and non-labored on room air. Midline is patent and saline-locked. All needs met throughout shift. Bed locked in lowest position and call light is within reach. Seizure precautions remain in place. Will endorse to police shift commander RN.
--- NOTE | 2021-05-18 19:40 | NUR ---
ROUNDS PATIENT IN BED, WATCHING TV, VITALS STABLE. ASSESSMENT DONE AND DOCUMENTED. SEE FLOWSHEET. NEEDS ATTENDED TO. SAFETY MEASURES IN PLACED. CALL LIGHT PLACED WITHIN REACH.
[2021-05-18] MEDS: ATORVASTATIN 20 MG TABLET PO SCH (20:19)
[2021-05-19 01:03] VITALS: BP_SYST 112
--- NOTE | 2021-05-19 06:55 | NUR ---
CLOSING NOTES PATIENT AWAKE, NO COMPLAINTS AT THIS TIME. ALL NEEDS ATTENDED TO. CALL LIGHT PLACED WITHIN REACH. \
--- NOTE | 2021-05-19 07:55 | NUR ---
OPENING NOTE Received shift report from shift manager RN. Patient currently resting in bed and respirations remain even and non-labored on room air. Midline is patent and saline-locked. Bed locked in lowest position and call light is within reach. Seizure precautions remain in place. Will continue to monitor.
[2021-05-19 08:00] VITALS: BP_SYST 119
[2021-05-19] MEDS: predniSONE 20 MG TABLET PO SCH (09:30)
[2021-05-19] MEDS: OXcarbazepine 150 MG TABLET(TRILEPTAL) PO SCH (09:30)
[2021-05-19] MEDS: FAMOTIDINE 20 MG TABLET PO SCH (09:31)
[2021-05-19] MEDS: MECLIZINE HCL 25 MG TABLET (ANITVERT) PO SCH (09:31)
[2021-05-19] MEDS: FLUCONAZOLE 100 MG TABLET (DIFLUCAN) PO SCH (09:31)
[2021-05-19] MEDS: CHOLECALCIFEROL (VITAMIN D-3) 400 UNIT TABLET PO SCH (09:31)
[2021-05-19] MEDS: ASCORBIC ACID 500 MG TABLET PO SCH (09:31)
[2021-05-19] MEDS: ENOXAPARIN SODIUM 40 MG/0.4 ML SYRINGE SUBCUT SCH (09:33)
--- NOTE | 2021-05-19 10:04 | NUR ---
Notes Patient has been cleared for discharge from all consults. Notified case management.
--- NOTE | 2021-05-19 12:07 | NUR ---
Discharge Planning: Patient to go to [facility] at [facility] (F [phone] P [phone]), DCP placed transport on Will Call with [facility] [phone]. Patient nurse and CM aware and pt packet taken to nurse station. Disposition 03
[2021-05-19 12:13] VITALS: BP_SYST 109
[2021-05-19 13:58] VITALS: BP_SYST 113
--- NOTE | 2021-05-19 15:15 | NUR ---
D/C Patient Patient sent with medication reconciliation form and D/C instructions. Exit Care provided. Patient verbalized understanding. MD discussed with patient the results and treatment provided. Transferred via [facility] ambulance for discharge to [facility]. Patient in stable condition, ID band removed. IV catheter removed, intact and dressing applied, no active bleeding. Rx of Levaquin sent per MD. Patient educated on pain management. All belongings sent with patient.
== END 2021-05-19 15:15 | DRG 202 ==
LOC: SED 19:23 → SMU 22:33
PROVIDERS: ADMIT Internal Medicine; ATTEND Internal Medicine
DX: J45.901 Unspecified asthma with (acute) exacerbation (principal); N39.0 Urinary tract infection, site not specified; I10 Essential (primary) hypertension; J44.9 Chronic obstructive pulmonary disease, unspecified; F41.9 Anxiety disorder, unspecified; Z20.822 Contact with and (suspected) exposure to COVID-19; F32.A Depression, unspecified; F03.90 Unspecified dementia, unspecified severity, without behavioral disturbance, psychotic disturbance, mood disturbance, and anxiety; G40.909 Epilepsy, unspecified, not intractable, without status epilepticus; N28.1 Cyst of kidney, acquired; B96.89 Other specified bacterial agents as the cause of diseases classified elsewhere; Z88.0 Allergy status to penicillin; Z79.899 Other long term (current) drug therapy
CPT/HCPCS: 36415; 76700-TC; 76770; 80048; 80053; 81000; 82150; 83036; 83605; 83615; 83690; 84484; 85025; 85610-TC; 85730-TC; 86140; 87081; 87086; 96372; 99285; J1030; J1650; J1956; J2765; J7512; J8597; Q0162